=== PATIENT | female | born 1980 | race Caucasian/White ===

== ENCOUNTER → 2017-10-11 | Outpatient (REF) | payer OTHER ==
[2017-10-11 14:43] LABS: ALBUMIN 3.6 GM/DL (3.2-5.2); ALBUMIN/GLOBULIN RATIO 1.09 (1.00-1.93); ALKALINE PHOSPHATASE 76 U/L (45-117); ALT/SGPT 19 U/L (12-78); AST/SGOT 11 U/L (7-37); BILIRUBIN,DIRECT < 0.1 MG/DL (0.0-0.2); BILIRUBIN,TOTAL 0.2 MG/DL (0.2-1.0); TOTAL PROTEIN 6.9 GM/DL (6.4-8.2)
[2017-10-15 10:28] LABS: HEPATITIS C QUANTITATION HCV Not Detected IU/mL (.)
== END ==
LOC: M SFHCPLAZ 13:24
DX: B18.2 Chronic viral hepatitis C (principal)

== ENCOUNTER → 2018-08-30 | Outpatient (CLI) | payer OTHER ==
[~2018-08-30] MED LIST: ALL10TAB28 PO; BACT800T5 PO; CETI10TA PO; DOK100TA PO; EXCETAB80 PO; GABA-843 PO; IMIT100T PO; MAVY1TAB PO; METH10CO PO; METH10TA2 PO; MIRA3350 PO; MIRA33504 PO; NICO21PAT TD; NORC1TAB4 PO; OSEL75CA2 PO; PATIENT COMMENT; SENE8.6T3 PO; TOPA100T12 PO; TOPA1TAB PO; TRAZ1TAB14 PO; TRAZO50TA PO; VENL150C43 PO; VENL75CA2 PO; VENL75CA47 PO; VENTAER INH; VITMTA PO
--- NOTE | 2018-09-14 01:00 | ECWPNPC ---
PATIENT NAME: LOREN WHITE : 1980 GENDER: FEMALE VISIT DATE: 08/30/2018 DISCHARGE DATE: 08/30/18 1201 VISIT LOCKED DATE TIME: PHYSICIAN: JOSE MANZANO MD RESOURCE: JOES MANZANO MD REASON FOR APPOINTMENT 1. CHRONIC LOW BACK PAIN HISTORY OF PRESENT ILLNESS FALL RISK SCREENING: SCREENING : NO FALLS IN THE PAST YEAR. PAIN SCREENING: PATIENT HAS A COMPLAINT OF ACUTE OR CHRONIC PAIN :YES 38 YEAR OLD FEMALE PATIENT WITH A HISTORY OF CHRONIC LOW BACK PAIN. THE PATIENT DESCRIBES THE PAIN ACHING, STABBING, TENDER, SORE, AND CONTINUOUS WITH A PAIN SCORE OF 7-10/10 DEPENDING ON PHYSICAL ACTIVITY. THE PATIENT SAYS THAT SHE HAS HAD THIS PAIN FOR MANY YEARS AND DOES NOT RECALL A SPECIFIC INCIDENT THAT CAUSED HER PAIN TO START. THE PATIENT SAYS HER PAIN STARTS IN HER LOW BACK AREA AND OCCASIONALLY RADIATES DOWN BOTH OF HER LEGS. THE PATIENT HAS TRIED PHYSICAL THERAPY IN THE PAST, BUT SAYS IT DID NOT HELP. PATIENT DENIES UNEXPLAINABLE WEIGHT LOSS, FEVER, CHILLS, NEW CHANGES ON HER URINARY OR BOWEL CONTROL. CURRENT MEDICATIONS TAKING EFFEXOR XR 150 MG CAPSULE EXTENDED RELEASE 24 HOUR 1 CAPSULE WITH FOOD ORALLY ONCE A DAY TAKING EFFEXOR XR 75 MG CAPSULE EXTENDED RELEASE 24 HOUR 1 CAPSULE WITH FOOD ORALLY ONCE A DAY TAKING TRAZODONE HCL 150 MG TABLET 1 TABLET AT BEDTIME NEEDED ORALLY ONCE A DAY TAKING TOPAMAX 50 MG TABLET 1 TABLET ORALLY TWICE A DAY TAKING RISPERIDONE 0.5 MG TABLET 1 TABLET ORALLY BID TAKING METHADONE HCL 10 MG/5ML SOLUTION 155 MG LIQUID ORALLY DAILY TAKING IMITREX 50 MG TABLET 1 TABLET NEEDED ORALLY TWICE A DAY TAKING GABAPENTIN 300 MG CAPSULE 1 CAPSULE ORALLY TID TAKING CETIRIZINE HCL 10 MG TABLET 1 TABLET ORALLY ONCE A DAY TAKING METFORMIN HCL ER 750 MG TABLET EXTENDED RELEASE 24 HOUR 1 TABLET WITH EVENING MEAL ORALLY ONCE A DAY TAKING SUMATRIPTAN SUCCINATE 100 MG TABLET 1 TABLET NEEDED ORALLY TWICE A DAY TAKING VENTOLIN HFA 108 (90 BASE) MCG/ACT AEROSOL SOLUTION 2 PUFFS NEEDED INHALATION EVERY 6 HRS TAKING IBUPROFEN 800 MG TABLET 1 TABLET WITH FOOD OR MILK NEEDED ORALLY THREE TIMES A DAY TAKING EXCEDRIN EXTRA STRENGTH 250-250-65 MG TABLET 2 TABLETS NEEDED ORALLY ONCE A DAY TAKING MULTI COMPLETE - CAPSULE 1 CAP ORALLY DAILY NOT-TAKING ZYRTEC ALLERGY 10 MG TABLET 1 TABLET ORALLY ONCE A DAY NOT-TAKING COLACE 100 MG CAPSULE 1 CAPSULE NEEDED ORALLY ONCE A DAY NOT-TAKING MIRALAX - PACKET 1 PACKET MIXED WITH 8 OUNCES OF FLUID ORALLY ONCE A DAY NOT-TAKING MAVYRET 100-40 MG TABLET 3 TABLETS ORALLY ONCE A DAY MEDICATION LIST REVIEWED AND RECONCILED WITH THE PATIENT PAST MEDICAL HISTORY CHRONIC HEPATITIS C HEPATITIS C VIRAL LOAD 284,000 AST 35 ALT 80 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 MAJOR DEPRESSION SEASONAL ALLERGIES INSOMNIA TATOOS ON RIGHT LEG AND ARM ASTHMA ANXIETY ALLERGIES KEFLEX: ANAPHYLAXIS - ALLERGY SEASONAL: ALLERGY SURGICAL HISTORY CARPAL TUNNEL SURGERY 2018 TUBAL LIGATION 2006 FAMILY HISTORY 1 SON(S) , 2 DAUGHTER(S) . PATIENT WAS ADOPTED, DOES NOT KNOW FAMILY HISTORY.DAUGHTER - AUTISM, BI-POLAR. SOCIAL HISTORY GENERAL: TOBACCO USE ARE YOU A:CURRENT SMOKER ARE YOU INTERESTED IN QUITTING?NOT READY TO QUIT COUNSELED THE PATIENT ON SMOKING EFFECTS, EDUCATION [id number]/08/2019 HOW MANY CIGARETTES A DAY DO YOU SMOKE?6-10 HOW SOON AFTER YOU WAKE UP DO YOU SMOKE YOUR FIRST CIGARETTE?6-30 MIN HOW OFTEN DO YOU SMOKE CIGARETTES?EVERY DAY PATIENT COUNSELED ON THE DANGERS OF TOBACCO USE AND URGED TO QUIT:08/30/2018 SMOKING CESSATION INFORMATION GIVEN01/01/2018 LATEX QUESTIONNAIRE LATEX ALLERGY : HAVE YOU EVER DEVELOPED ANY TYPE OF REACTION AFTER HANDLING LATEX PRODUCTS SUCH RUBBER GLOVES, CONDOMS, DIAPHRAGMS, BALLOONS, SOCKS, OR UNDERWEAR?NO LATEX ALLERGY : HAVE YOU EVER DEVELOPED ANY TYPE OF REACTION DURING OR AFTER DENTAL APPOINTMENT, VAGINAL/RECTAL EXAMINATION, SURGICAL PROCEDURE, OR ANY OTHER EXPOSURE?NO LATEX RISK : HAVE YOU EVER HAD ANY DIFFICULTY BREATHING OR HIVES AFTER EATING OR HANDLING ANY FRUITS, OR VEGETABLES; SUCH KIWI, BANANAS, STONE FRUITS, OR CHESTNUTSNO LATEX RISK : DO YOU HAVE A PREVIOUS PERSONAL HISTORY OF MORE THAN NINE SURGERIES, SPINA BIFIDA, OR REPEATED CATHERTIZATIONS? NO LATEX RISK : ARE YOU FREQUENTLY EXPOSED TO LATEX PRODUCTS IN YOUR OCCUPATION?NO DATE ASKED : 08/30/2018 ALCOHOL SCREENING DID YOU HAVE A DRINK CONTAINING ALCOHOL IN THE PAST YEAR?NO POINTS0 INTERPRETATIONNEGATIVE RECREATIONAL DRUG USE DRUG USE?YES ADDICTION OPIATES IN PAST, HAS BEEN SOBER FOR 16 MONTHS CAFFEINE CAFFEINE USE?YES SEXUAL HX HAD SEX IN THE LAST 12 MONTHS (VAGINAL, ORAL, OR ANAL)?NO HAVE YOU EVER HAD AN STD?NO LMP:07/2017 HIV / HEP-C SCREENING HIV TEST OFFERED TO PATIENT:YES DATE OFFERED:08/06/2017 TEST ACCEPTED:NO REASON:OTHER (DOCUMENT IN NOTE) PER PT SCREENED NEGATIVE HEP-C TEST OFFERED TO PATIENT:YES STATES TEST WAS NOT POSITIVE LATTER-DAY [id number] [employer] LANGUAGE LANGUAGES SPOKEN:BELGI[place] EDUCATION LEVEL OF EDUCATION:FINISHED HIGH SCHOOL LEARNING BARRIERS / SPECIAL NEEDS BARRIERS TO LEARNING?NO HEARING IMPAIRED?NO VISION IMPAIRED?YES :CORRECTIVE LENSES GLASSES COGNITIVELY IMPAIRED?NO READINESS TO LEARN?YES LEARNING PREFERENCES?NO LEARNING CAPABILITIES PRESENT?YES EMOTIONAL BARRIERS?YES COMMENTSDOCUMENTED IN NOTES SECTION> DRUG ADDICTION SPECIAL DEVICES?NO ACOUSTICAL INSTALLER NEEDED?NO DOMESTIC VIOLENCE DO YOU FEEL SAFE IN YOUR ENVIRONMENT?YES OCCUPATION: UNEMPLOYED HAS BEEN (INCARCERATED)6MONTHS. DIET: REGULAR. EXERCISE: NONE. MARITAL STATUS: BUT, AND SINGLE. OTHERS AT HOME: NONE. PAIN CLINIC PFS, CLERGY, PUBLIC HEALTH REFERRALS HAS THE PATIENT BEEN EDUCATED REGARDING HIS/HER PLAN OF CARE?YES HAS THE PATIENT BEEN EDUCATED REGARDING PAIN, THE RISK FOR PAIN, THE IMPORTANCE OF EFFECTIVE PAIN MANAGEMENT, AND THE PAIN ASSESSMENT PROCESS?YES HOUSING: RENTS APARTMENT. ADVANCE DIRECTIVE ADVANCE DIRECTIVE DISCUSSED WITH PATIENT:YES DECLINED HCP INFORMATION. REVIEWED WITH PATIENT 08/30/18 1107 JS. HOSPITALIZATION/MAJOR DIAGNOSTIC PROCEDURE SURGERY RELATED CHILD REVIEW OF SYSTEMS REVIEWED BY: PROVIDER: JOSE MANZANO MD . CONSTITUTIONAL: ANY CHANGE IN YOUR MEDICAL CONDITION? NO . CHILLS NO . FEVER NO . INFECTION: DO YOU HAVE NEW INFECTIONS? NO . DO YOU HAVE HISTORY OF MRSA? NO . MUSCULOSKELETAL: ANY NEW PATTERNS OF PAIN OR NUMBNESS? YES, STATES PAIN MOSTLY IN HER LOWER BACK, STATES IT COMES AND GOES . SYTEMIC LUPUS NO . GASTROENTEROLOGY: ANY NEW CHANGE IN BOWEL CONTROL? YES, STATES CONSTIPATION DUE TO METHADONE . BARRETTS ESOPHAGUS NO . CIRRHOSIS NO . HEPATITIS NO . LIVER FAILURE NO . ACID REFLUX NO . UNEXPLAINED WEIGHT LOSS NO . GENITOURINARY: ANY NEW CHANGE IN BLADDER CONTROL? NO . IS THERE A CHANCE YOU COULD BE ? NO . HEMATOLOGY/LYMPH: DO YOU TAKE ANY BLOOD THINNERS? (FOR EXAMPLE- COUMADIN, PLAVIX, AGGRENOX, PLATEL, PRADAXA, OR XARELTO) NO . WHEN WAS YOUR LAST DOSE? DATE: TIME: . LOW PLATELET COUNT NO . SICKLE CELL DISEASE NO . VON WILLIEBRANDS NO . FACTOR V LEIDEN NO . THALLASEMIA NO . ANEMIA NO . EASY BRUISING NO . NEUROLOGY: HAVE YOU FALLEN IN THE PAST 12 MONTHS? NO . ANY NEW EXTREMITY NUMBNESS OR WEAKNESS? YES, STATES PAIN SHOOTS DOWN HER LEGS FROM HER BACK, STATES SOMETIMES IT MAKES HER LEGS WEAK . HEAD INJURY NO . DEMENTIA NO . CEREBRAL PALSY NO . MULTIPLE SCLEROSIS NO . DIZZINESS NO . HEADACHE NO . STROKES NO . VERTIGO NO . CARDIOLOGY: DO YOU HAVE A PACEMAKER OR DEFIBRILLATOR? NO . ANGINA NO . HEART ATTACK NO . HEART SURGERY NO . CONGESTIVE HEART FAILURE/FLUID OVERLOAD NO . CHEST PAIN NO . HIGH BLOOD PRESSURE NO . IRREGULAR HEART BEAT NO . RESPIRATORY: HAVE YOU BEEN SICK IN THE PAST WEEK? NO . FEVER NO . FLU LIKE SYMPTOMS? NO . CPAP NO . BYPAP NO . ASTHMA YES . EMPHYSEMA NO . CHRONIC LUNG DISEASES NO . SHORTNESS OF BREATH ON EXERTION YES . COUGH NO . SNORING NO . INTEGUMENTARY: DO YOU HAVE ANY RASHES OR OPEN SORES? NO . ALLERGIC/IMMUNO: ARE YOU ALLERGIC TO IV DYE? NO . ANY NEW ALLERGIES? NO . PSYCHIATRIC: DO YOU HAVE THOUGHTS OF HURTING YOURSELF OR SOMEONE ELSE? NO . ARE YOU ABUSED, NEGLECTED, OR IN AN UNSAFE ENVIRONMENT? NO . ENDOCRINOLOGY: ARE YOU DIABETIC? NO . THYROID DISORDER NO . OTHER: DO YOU NEED ANY PRESCRIPTIONS? NO . IF YES, PLEASE LIST: ____ . ANY NEW PROBLEMS WITH YOUR MEDICATIONS? NO . WHEN DID YOU LAST EAT? ____ . WHEN DID YOU LAST DRINK? ____ . WHAT DID YOU LAST DRINK? ____ . NAME OF PERSON DRIVING YOU HOME? ____ . DO YOU HAVE ANY OTHER QUESTIONS OR CONCERNS NO . VITAL SIGNS WT 196.4 LBS, HT 64 IN, BMI 33.71 INDEX, BP 112/79 MM HG, HR 88 /MIN, RR 18 /MIN, TEMP 97.7 F, OXYGEN SAT % 92%, SAFE IN ENV? (Y/N) YES, NA INITIALS AW 1051, REVIEWED BY: TAMEKA. EXAMINATION GENERAL EXAMINATION: PATIENT IS ALERT O X 3 AND COOPERATIVE. LUNGS CLEAR, TO AUSCULTATION. HEART: NO MURMURS OR GALLOPS; FACIAL CRANIAL NERVES ARE GROSSLY NORMAL. GOOD SYMMETRY OF FACIAL MUSCLE MOVEMENT. NORMAL VISUAL VANG. TENDERNESS IN THE LOW BACK AREA. PRESENCE OF TRIGGER POINTS AND BANDS OF TISSUE WITH RESTRICTION OF MOVEMENT OF THE BACK. PAIN INCREASES OVER THE LUMBAR FACET JOINTS WITH EXTENSION AND LATERAL ROTATION OF THE BACK. MRI OF THE LUMBAR SPINE DONE ON 08/02/2017 SHOWS FACET ARTHROPATHY CHANGES AND BULGING DISCS AT MULTIPLE LEVELS. 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 WHITE'S PAIN MANAGEMENT CASE. DUE TO THE TRIGGER POINTS, BANDS OF TISSUE, AND RESTRICTION OF MOVEMENT, I WOULD LIKE TO MOVE FORWARD WITH A TRIGGER POINT INJECTION AT THIS TIME. WE DISCUSSED THE BENEFITS, RISKS, AND ALTERNATIVES OF THE INJECTION AND THE PATIENT WOULD LIKE TO PROCEED. DEPENDING ON THE RESULTS OF THE INJECTION, THE PATIENT WILL CONSIDER A LUMBER EPIDURAL OR A LUMBAR FACET BLOCK IN THE FUTURE. INSTRUCTIONS WERE GIVEN, QUESTIONS WERE ANSWERED, PATIENT REPORTS UNDERSTANDING AND AGREES WITH THE PLAN. I, CHER BROWN, DOCUMENTED THE ABOVE INFORMATION ACTING A SCRIBE FOR DR. MANZANO. I HAVE REVIEWED THE ABOVE DOCUMENT, WRITTEN BY CHER MINER AND I VERIFY THAT IT IS ACCURATE. DEAR DR. CLARK:THANK YOU FOR YOUR KIND REFERRAL OF MRS. WHITE. IF YOU WANT TO DISCUSS HER CASE WITH ME PLEASE CALL ME AT THE PAIN CENTER AT [phone]. SINCERELY,JOSE MANZANO, [facility] . OTHERS NOTES: TRIGGER POINT INJECTION MATERIAL WAS PRINTED,TRIGGER POINT INJECTION: YOUR EXPERIENCE MATERIAL WAS PRINTED. PREVENTIVE MEDICINE PAIN CLINIC TEACHING: PROCEDURE TEACHING PRINTED AND REVIEWED INFORMATION ON TRIGGER POINT INJECTIONS WITH PATIENT. ALSO REVIEWED PRE-PROCEDURE INSTRUCTIONS. PATIENT VERBALIZED AN UNDERSTANDING. HILARY DUMONT 08/30/2018 12:13:28 PM > . PROCEDURE CODES FA211 ESTABILISHED PATIENT [facility] FACILITY CHARGE G8427 CURRENT MEDS W/DOSAGES DOCUMENTED G8730 PAIN ASSESS POS TOOL F/U PLAN DOC DISPOSITION & COMMUNICATION FOLLOW UP 3 WEEKS ELECTRONICALLY SIGNED BY JOSE MANZANO MD, MD ON 09/13/2018 AT 10:56 AM EDT DISCLAIMER : THIS IS A VISIT SUMMARY EXTRACTED FROM THE [employer] CHART. IT IS NOT A COPY OF THE [employer] PROGRESS NOTE. PARKER
== END ==
LOC: MERGE 10:30 → M PAIN 10:30
PROVIDERS: ATTEND Anesthesiology
DX: M79.18 Myalgia, other site (principal); M47.816 Spondylosis without myelopathy or radiculopathy, lumbar region; M51.16 Intervertebral disc disorders with radiculopathy, lumbar region; F32.9 Major depressive disorder, single episode, unspecified; J45.909 Unspecified asthma, uncomplicated; F41.9 Anxiety disorder, unspecified; F17.210 Nicotine dependence, cigarettes, uncomplicated; Z79.84 Long term (current) use of oral hypoglycemic drugs; Z79.899 Other long term (current) drug therapy; Z88.8 Allergy status to other drugs, medicaments and biological substances; Z86.59 Personal history of other mental and behavioral disorders; Z86.19 Personal history of other infectious and parasitic diseases

== ENCOUNTER → 2018-09-25 | Outpatient (REF) | payer OTHER ==
[~2018-09-25] MED LIST changes: -NORC1TAB4 PO; +NORC1TAB7 PO
[2018-09-25 10:32] LABS: CHOLESTEROL RISK RATIO 5.162 (<5)
[2018-09-25 11:30] LABS: HEMOGLOBIN A1c 5.8 %
== END ==
LOC: M LABDRWAD 10:04
PROVIDERS: ATTEND Nurse Practitioner Psychiatric/Mental Health
DX: Z51.81 Encounter for therapeutic drug level monitoring (principal); Z79.899 Other long term (current) drug therapy; F20.9 Schizophrenia, unspecified

== ENCOUNTER → 2018-11-05 | Outpatient (CLI) | payer OTHER ==
[~2018-11-05] MED LIST changes: +BUPIVACAINE HCL 0.25% 10 ML VIAL As Ordered ONE; +BUPIVACAINE HCL 0.25% 30 ML VIAL As Ordered ONE; +TRIAMCINOLONE ACETONIDE SUSP 40 MG/ML VIAL (J3301) As Ordered ONE; +diazePAM 5 MG TAB As Ordered ONE; +oxyCODONE 5MG TAB As Ordered ONE
--- NOTE | 2018-11-16 23:12 | ECWPNPC ---
PATIENT NAME: LOREN WHITE : 1980 GENDER: FEMALE VISIT DATE: 11/05/2018 DISCHARGE DATE: 11/05/181425 VISIT LOCKED DATE TIME: PHYSICIAN: JOSE MANZANO MD RESOURCE: JOSE MANZANO MD REASON FOR APPOINTMENT 1. TPI HISTORY OF PRESENT ILLNESS HISTORY OF PRESENT ILLNESS: PAIN THE PATIENT DESCRIBES THE PAIN... FALL RISK SCREENING: SCREENING :NO FALLS REPORTED IN THE LAST YEAR CURRENT MEDICATIONS TAKING EFFEXOR XR 150 MG CAPSULE EXTENDED RELEASE 24 HOUR 1 CAPSULE WITH FOOD ORALLY ONCE A DAY, NOTES: 11/05/18 AM TAKING EFFEXOR XR 75 MG CAPSULE EXTENDED RELEASE 24 HOUR 1 CAPSULE WITH FOOD ORALLY ONCE A DAY, NOTES: 11/05/18 AM TAKING TRAZODONE HCL 150 MG TABLET 1 TABLET AT BEDTIME NEEDED ORALLY ONCE A DAY, NOTES: 11/04/18 TAKING TOPAMAX 50 MG TABLET 1 TABLET ORALLY TWICE A DAY, NOTES: 11/05/18 AM TAKING RISPERIDONE 0.5 MG TABLET 1 TABLET ORALLY BID, NOTES: 11/05/18 AM TAKING METHADONE HCL 10 MG/5ML SOLUTION 155 MG LIQUID ORALLY DAILY, NOTES: 11/05/18 AM TAKING IMITREX 50 MG TABLET 1 TABLET NEEDED ORALLY TWICE A DAY, NOTES: NONE LATELY TAKING GABAPENTIN 300 MG CAPSULE 1 CAPSULE ORALLY TID, NOTES: 11/05/18 AM TAKING CETIRIZINE HCL 10 MG TABLET 1 TABLET ORALLY ONCE A DAY, NOTES: 11/05/18 AM TAKING METFORMIN HCL ER 750 MG TABLET EXTENDED RELEASE 24 HOUR 1 TABLET WITH EVENING MEAL ORALLY ONCE A DAY, NOTES: 11/05/18 AM TAKING SUMATRIPTAN SUCCINATE 100 MG TABLET 1 TABLET NEEDED ORALLY TWICE A DAY, NOTES: 11/05/18 AM TAKING VENTOLIN HFA 108 (90 BASE) MCG/ACT AEROSOL SOLUTION 2 PUFFS NEEDED INHALATION EVERY 6 HRS, NOTES: NONE LATELY TAKING IBUPROFEN 800 MG TABLET 1 TABLET WITH FOOD OR MILK NEEDED ORALLY THREE TIMES A DAY, NOTES: NONE LATELY TAKING EXCEDRIN EXTRA STRENGTH 250-250-65 MG TABLET 2 TABLETS NEEDED ORALLY ONCE A DAY, NOTES: NONE LATELY TAKING MULTI COMPLETE - CAPSULE 1 CAP ORALLY DAILY, NOTES: 11/05/18 AM NOT-TAKING ZYRTEC ALLERGY 10 MG TABLET 1 TABLET ORALLY ONCE A DAY NOT-TAKING COLACE 100 MG CAPSULE 1 CAPSULE NEEDED ORALLY ONCE A DAY NOT-TAKING MIRALAX - PACKET 1 PACKET MIXED WITH 8 OUNCES OF FLUID ORALLY ONCE A DAY NOT-TAKING MAVYRET 100-40 MG TABLET 3 TABLETS ORALLY ONCE A DAY MEDICATION LIST REVIEWED AND RECONCILED WITH THE PATIENT PAST MEDICAL HISTORY CHRONIC HEPATITIS C HEPATITIS C VIRAL LOAD 284,000 AST 35 ALT 80 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 MAJOR DEPRESSION SEASONAL ALLERGIES INSOMNIA TATOOS ON RIGHT LEG AND ARM ASTHMA ANXIETY ALLERGIES KEFLEX: ANAPHYLAXIS - ALLERGY SEASONAL: ALLERGY SURGICAL HISTORY CARPAL TUNNEL SURGERY 2018 TUBAL LIGATION 2007 FAMILY HISTORY 1 SON(S) , 2 DAUGHTER(S) . PATIENT WAS ADOPTED, DOES NOT KNOW FAMILY HISTORY.DAUGHTER - AUTISM, BI-POLAR. SOCIAL HISTORY GENERAL: TOBACCO USE ARE YOU A:CURRENT SMOKER ARE YOU INTERESTED IN QUITTING?NOT READY TO QUIT COUNSELED THE PATIENT ON SMOKING EFFECTS, EDUCATION [id number]/14/2019 HOW MANY CIGARETTES A DAY DO YOU SMOKE?6-10 HOW SOON AFTER YOU WAKE UP DO YOU SMOKE YOUR FIRST CIGARETTE?6-30 MIN HOW OFTEN DO YOU SMOKE CIGARETTES?EVERY DAY PATIENT COUNSELED ON THE DANGERS OF TOBACCO USE AND URGED TO QUIT:08/30/2018 SMOKING CESSATION INFORMATION GIVEN01/01/2018 HIV / HEP-C SCREENING HIV TEST OFFERED TO PATIENT:YES DATE OFFERED:08/06/2017 TEST ACCEPTED:NO REASON:OTHER (DOCUMENT IN NOTE) PER PT SCREENED NEGATIVE HEP-C TEST OFFERED TO PATIENT:YES STATES TEST WAS NOT POSITIVE OTHERS AT HOME: NONE. HOUSING: RENTS APARTMENT. EDUCATION LEVEL OF EDUCATION:FINISHED HIGH SCHOOL DIET: REGULAR. LANGUAGE LANGUAGES SPOKEN:MARSHALLESE DOMESTIC VIOLENCE DO YOU FEEL SAFE IN YOUR ENVIRONMENT?YES RECREATIONAL DRUG USE DRUG USE?YES ADDICTION OPIATES IN PAST, HAS BEEN SOBER FOR 16 MONTHS EXERCISE: NONE. 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 NEEDED?NO PAIN CLINIC PFS, CLERGY, PUBLIC HEALTH REFERRALS HAS THE PATIENT BEEN EDUCATED REGARDING HIS/HER PLAN OF CARE?YES HAS THE PATIENT BEEN EDUCATED REGARDING PAIN, THE RISK FOR PAIN, THE IMPORTANCE OF EFFECTIVE PAIN MANAGEMENT, AND THE PAIN ASSESSMENT PROCESS?YES LATEX QUESTIONNAIRE LATEX ALLERGY : HAVE YOU EVER DEVELOPED ANY TYPE OF REACTION AFTER HANDLING LATEX PRODUCTS SUCH RUBBER GLOVES, CONDOMS, DIAPHRAGMS, BALLOONS, SOCKS, OR UNDERWEAR?NO LATEX ALLERGY : HAVE YOU EVER DEVELOPED ANY TYPE OF REACTION DURING OR AFTER DENTAL APPOINTMENT, VAGINAL/RECTAL EXAMINATION, SURGICAL PROCEDURE, OR ANY OTHER EXPOSURE?NO LATEX RISK : HAVE YOU EVER HAD ANY DIFFICULTY BREATHING OR HIVES AFTER EATING OR HANDLING ANY FRUITS, OR VEGETABLES; SUCH KIWI, BANANAS, STONE FRUITS, OR CHESTNUTSNO LATEX RISK : DO YOU HAVE A PREVIOUS PERSONAL HISTORY OF MORE THAN NINE SURGERIES, SPINA BIFIDA, OR REPEATED CATHERTIZATIONS? NO LATEX RISK : ARE YOU FREQUENTLY EXPOSED TO LATEX PRODUCTS IN YOUR OCCUPATION?NO DATE ASKED : 08/30/2018 CAFFEINE CAFFEINE USE?YES ADVANCE DIRECTIVE ADVANCE DIRECTIVE DISCUSSED WITH PATIENT:YES DECLINED HCP INFORMATION. HINDU [id number] EPISCOPAL MARITAL STATUS: BUT, AND SINGLE. ALCOHOL SCREENING DID YOU HAVE A DRINK CONTAINING ALCOHOL IN THE PAST YEAR?NO POINTS0 INTERPRETATIONNEGATIVE OCCUPATION: UNEMPLOYED HAS BEEN (INCARCERATED)6MONTHS. SEXUAL HX HAD SEX IN THE LAST 12 MONTHS (VAGINAL, ORAL, OR ANAL)?NO HAVE YOU EVER HAD AN STD?NO LMP:07/2017 REVIEWED WITH PATIENT 08/30/18 1107 JS. HOSPITALIZATION/MAJOR DIAGNOSTIC PROCEDURE SURGERY RELATED CHILD REVIEW OF SYSTEMS REVIEWED BY: PROVIDER: . CONSTITUTIONAL: ANY CHANGE IN YOUR MEDICAL CONDITION? NO . CHILLS NO . FEVER NO . INFECTION: DO YOU HAVE NEW INFECTIONS? NO . DO YOU HAVE HISTORY OF MRSA? NO . MUSCULOSKELETAL: ANY NEW PATTERNS OF PAIN OR NUMBNESS? NO . GASTROENTEROLOGY: ANY NEW CHANGE IN BOWEL CONTROL? NO . GENITOURINARY: ANY NEW CHANGE IN BLADDER CONTROL? NO . IS THERE A CHANCE YOU COULD BE ? NO . HEMATOLOGY/LYMPH: DO YOU TAKE ANY BLOOD THINNERS? (FOR EXAMPLE- COUMADIN, PLAVIX, AGGRENOX, PLATEL, PRADAXA, OR XARELTO) NO . WHEN WAS YOUR LAST DOSE? DATE: TIME: . NEUROLOGY: HAVE YOU FALLEN IN THE PAST 12 MONTHS? NO . ANY NEW EXTREMITY NUMBNESS OR WEAKNESS? NO . CARDIOLOGY: DO YOU HAVE A PACEMAKER OR DEFIBRILLATOR? NO . RESPIRATORY: HAVE YOU BEEN SICK IN THE PAST WEEK? NO . FEVER NO . FLU LIKE SYMPTOMS? NO . COUGH NO . INTEGUMENTARY: DO YOU HAVE ANY RASHES OR OPEN SORES? NO . ALLERGIC/IMMUNO: ARE YOU ALLERGIC TO IV DYE? NO . ANY NEW ALLERGIES? NO . PSYCHIATRIC: DO YOU HAVE THOUGHTS OF HURTING YOURSELF OR SOMEONE ELSE? NO . ARE YOU ABUSED, NEGLECTED, OR IN AN UNSAFE ENVIRONMENT? NO . ENDOCRINOLOGY: ARE YOU DIABETIC? NO . OTHER: DO YOU NEED ANY PRESCRIPTIONS? NO . IF YES, PLEASE LIST: ____ . ANY NEW PROBLEMS WITH YOUR MEDICATIONS? NO . WHEN DID YOU LAST EAT? ____ . WHEN DID YOU LAST DRINK? ____ . WHAT DID YOU LAST DRINK? ____ . NAME OF PERSON DRIVING YOU HOME? ____ . DO YOU HAVE ANY OTHER QUESTIONS OR CONCERNS NO . VITAL SIGNS WT 190 LBS, HT 64 IN, BMI 32.61 INDEX, BP 103/69 MM HG, HR 105 /MIN, RR 16 /MIN, TEMP 96.5 F, OXYGEN SAT % 95, REVIEWED BY: MP [id number]. ASSESSMENTS MYALGIA, OTHER SITE - M79.18 (PRIMARY) PROCEDURES PN TRIGGER POINT INJECTION WITH STEROIDS PRE PROCEDURE DIAGNOSIS 1. MYALGIA 2. PAIN AT BILATERAL LOW BACK AREA POST PROCEDURE DIAGNOSIS 1. MYALGIA 2. PAIN AT BILATERAL LOW BACK AREA PROCEDURE TRIGGER POINT INJECTION AT BILATERAL LOW BACK AREA SURGEON DR. JOSE MANZANO CREPE MACHINE OPERATOR NONE ANESTHESIA LOCAL PRE PROCEDURE NOTE THE PATIENT HAS A HISTORY OF CHRONIC PAIN AT THE RIGHT AND LEFT LOW BACK AREA. I EVALUATE THE PATIENT AND REVIEWED THE CHART. THERE IS EVIDENCE OF BANDS OF TISSUE WITH RESTRICTION OF MOVEMENT AND PRESENCE OF TRIGGER POINT AT THE AFFECTED AREA. I WENT OVER THE RISKS, ALTERNATIVES, AND BENEFITS ASSOCIATED WITH THIS PROCEDURE. THE PATIENT WOULD LIKE TO PROCEED AND GIVE CONSENT TO PERFORMED THE PROCEDURE. THE PATIENT DENIES UNEXPLAINABLE WEIGHT LOSS, FEVER, CHILLS, OR NEW CHANGES IN URINARY OR BOWEL CONTROL DESCRIPTION OF PROCEDURE THE PATIENT WAS BROUGHT TO THE PROCEDURE ROOM AND PLACED IN THE SITTING POSITION. THE AREA WAS CLEANED WITH ALCOHOL. THE PROCEDURE WAS DONE USING ASEPTIC STERILE TECHNIQUE. I CHECKED LATERALITY AND THE LEVEL WHERE THE PROCEDURE WAS GOING TO BE PERFORMED WITH THE PATIENT AND THE SUPPORTING STAFF AT THE MOMENT OF THE TIME OUT IN THE PROCEDURE ROOM. USING A 25-GAUGE NEEDLE, TRIGGER POINTS WERE INJECTED AT THE RIGHT AND LEFT LOW BACK AREA WITH A TOTAL OF 40 ML OF BUPIVACAINE 0.25% AND KENALOG 40 MG. THERE WAS NO EVIDENCE OF BLOOD, PARESTHESIA OR CEREBROSPINAL FLUID DURING THE PROCEDURE. THE PATIENT WAS SENT TO THE RECOVERY ROOM. THE PATIENT WAS MOVING THE EXTREMITIES AND DOING WELL. THERE WAS NO COMPLICATION DURING THE PROCEDURE POST PROCEDURE NOTE THE PATIENT WILL BE SEEN IN A FOLLOW UP IN THE NEXT FEW WEEKS. INSTRUCTIONS WERE GIVEN, QUESTIONS WERE ANSWERED, AND THE PATIENT EXPRESSED UNDERSTANDING AND AGREES WITH THE PLAN. I, CHER BROWN, DOCUMENTED THE ABOVE INFORMATION ACTING A SCRIBE FOR DR. MANZANO. I HAVE REVIEWED THE ABOVE DOCUMENT, WRITTEN BY CHER MCCALLUMIBIgor AND I VERIFY THAT IT IS ACCURATE. PROCEDURE CODES 97498 INJ TRIGGER POINT / MUSC DISPOSITION & COMMUNICATION FOLLOW UP 3 WEEKS ELECTRONICALLY SIGNED BY JOSE MANZANO MD, MD ON 11/16/2018 AT 05:26 PM EDT DISCLAIMER : THIS IS A VISIT SUMMARY EXTRACTED FROM THE [employer] CHART. IT IS NOT A COPY OF THE E[employer]ICAL[employer]KS PROGRESS NOTE. PARKER
== END ==
LOC: M PAIN 12:00
PROVIDERS: ATTEND Anesthesiology
DX: M79.18 Myalgia, other site (principal); M54.5 Low back pain; J45.909 Unspecified asthma, uncomplicated; F17.210 Nicotine dependence, cigarettes, uncomplicated; Z79.84 Long term (current) use of oral hypoglycemic drugs; Z79.899 Other long term (current) drug therapy; Z88.8 Allergy status to other drugs, medicaments and biological substances; Z86.19 Personal history of other infectious and parasitic diseases; Z86.59 Personal history of other mental and behavioral disorders
CPT/HCPCS: 20552; J3301

== ENCOUNTER → 2018-11-05 | Outpatient (CLI) | payer OTHER ==
[~2018-11-05] MED LIST changes: -BUPIVACAINE HCL 0.25% 10 ML VIAL As Ordered ONE; -BUPIVACAINE HCL 0.25% 30 ML VIAL As Ordered ONE; -TRIAMCINOLONE ACETONIDE SUSP 40 MG/ML VIAL (J3301) As Ordered ONE; -diazePAM 5 MG TAB As Ordered ONE; -oxyCODONE 5MG TAB As Ordered ONE
== END ==
LOC: M PAIN 08:30
PROVIDERS: ATTEND Anesthesiology
DX: M47.816 Spondylosis without myelopathy or radiculopathy, lumbar region (principal); M51.16 Intervertebral disc disorders with radiculopathy, lumbar region; Z53.29 Procedure and treatment not carried out because of patient's decision for other reasons

== ENCOUNTER → 2018-11-19 | Outpatient (CLI) | payer OTHER ==
[~2018-11-19] MED LIST changes: +TRAZ1TAB10 PO; -TRAZO50TA PO
--- NOTE | 2018-11-30 23:27 | ECWPNPC ---
PATIENT NAME: LOREN WHITE : 1980 GENDER: FEMALE VISIT DATE: 11/19/2018 DISCHARGE DATE: 11/19/18 1256 VISIT LOCKED DATE TIME: PHYSICIAN: JOSE MANZANO MD RESOURCE: JOSE MANZANO MD REASON FOR APPOINTMENT 1. POST TPI HISTORY OF PRESENT ILLNESS HISTORY OF PRESENT ILLNESS: PAIN THE PATIENT DESCRIBES THE PAIN... 38 YEAR OLD FEMALE PATIENT WITH A HISTORY OF CHRONIC LOW BACK PAIN. THE PATIENT DESCRIBES THE PAIN ACHING, BURNING, AND INTERMITTENT WITH A PAIN SCORE OF 0-5/10 DEPENDING ON PHYSICAL ACTIVITY. THE PATIENT RECEIVED A TRIGGER POINT INJECTION ON 11/05/2018 AND REPORTS HAVING MORE THAN 50% PAIN RELIEF. THE PATIENT SAYS THAT SHE IS DOING VERY WELL AFTER THE INJECTION. PATIENT DENIES UNEXPLAINABLE WEIGHT LOSS, FEVER, CHILLS, NEW CHANGES ON HER URINARY OR BOWEL CONTROL. FALL RISK SCREENING: SCREENING :NO FALLS REPORTED IN THE LAST YEAR CURRENT MEDICATIONS TAKING EFFEXOR XR 150 MG CAPSULE EXTENDED RELEASE 24 HOUR 1 CAPSULE WITH FOOD ORALLY ONCE A DAY TAKING EFFEXOR XR 75 MG CAPSULE EXTENDED RELEASE 24 HOUR 1 CAPSULE WITH FOOD ORALLY ONCE A DAY TAKING TRAZODONE HCL 150 MG TABLET 1 TABLET AT BEDTIME NEEDED ORALLY ONCE A DAY TAKING TOPAMAX 50 MG TABLET 1 TABLET ORALLY TWICE A DAY TAKING RISPERIDONE 0.5 MG TABLET 1 TABLET ORALLY BID TAKING METHADONE HCL 10 MG/5ML SOLUTION 155 MG LIQUID ORALLY DAILY TAKING IMITREX 50 MG TABLET 1 TABLET NEEDED ORALLY TWICE A DAY TAKING GABAPENTIN 300 MG CAPSULE 1 CAPSULE ORALLY TID TAKING CETIRIZINE HCL 10 MG TABLET 1 TABLET ORALLY ONCE A DAY TAKING METFORMIN HCL ER 750 MG TABLET EXTENDED RELEASE 24 HOUR 1 TABLET WITH EVENING MEAL ORALLY ONCE A DAY TAKING SUMATRIPTAN SUCCINATE 100 MG TABLET 1 TABLET NEEDED ORALLY TWICE A DAY TAKING VENTOLIN HFA 108 (90 BASE) MCG/ACT AEROSOL SOLUTION 2 PUFFS NEEDED INHALATION EVERY 6 HRS TAKING IBUPROFEN 800 MG TABLET 1 TABLET WITH FOOD OR MILK NEEDED ORALLY THREE TIMES A DAY TAKING EXCEDRIN EXTRA STRENGTH 250-250-65 MG TABLET 2 TABLETS NEEDED ORALLY ONCE A DAY TAKING MULTI COMPLETE - CAPSULE 1 CAP ORALLY DAILY NOT-TAKING COLACE 100 MG CAPSULE 1 CAPSULE NEEDED ORALLY ONCE A DAY NOT-TAKING MIRALAX - PACKET 1 PACKET MIXED WITH 8 OUNCES OF FLUID ORALLY ONCE A DAY NOT-TAKING MAVYRET 100-40 MG TABLET 3 TABLETS ORALLY ONCE A DAY DISCONTINUED ZYRTEC ALLERGY 10 MG TABLET 1 TABLET ORALLY ONCE A DAY, NOTES: DUPLICATE MEDICATION LIST REVIEWED AND RECONCILED WITH THE PATIENT PAST MEDICAL HISTORY CHRONIC HEPATITIS C HEPATITIS C VIRAL LOAD 284,000 AST 35 ALT 80 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 MAJOR DEPRESSION SEASONAL ALLERGIES INSOMNIA TATOOS ON RIGHT LEG AND ARM ASTHMA ANXIETY SPONDYLOSIS LUMBAR REGION WITH RADICULOPATHY MYALGIA INTERVERTEBRAL DISC DISORDER WITH RADICULOPATHY OF LUMBAR REGION ALLERGIES KEFLEX: ANAPHYLAXIS - ALLERGY SEASONAL: ALLERGY SURGICAL HISTORY CARPAL TUNNEL SURGERY-LEFT 2018 TUBAL LIGATION 2006 FAMILY HISTORY SIBLINGS: ALIVE, BROTHER-BIPOLAR, SCHIZOPHRENIA 1 SON(S) , 2 DAUGHTER(S) . PATIENT WAS ADOPTED, DOES NOT KNOW FAMILY HISTORY.DAUGHTER - AUTISM, BI-POLAR. SOCIAL HISTORY GENERAL: TOBACCO USE ARE YOU A:CURRENT SMOKER ARE YOU INTERESTED IN QUITTING?NOT READY TO QUIT COUNSELED THE PATIENT ON SMOKING EFFECTS, EDUCATION [id number]/28/2019 HOW MANY CIGARETTES A DAY DO YOU SMOKE?6-10 HOW SOON AFTER YOU WAKE UP DO YOU SMOKE YOUR FIRST CIGARETTE?6-30 MIN HOW OFTEN DO YOU SMOKE CIGARETTES?EVERY DAY PATIENT COUNSELED ON THE DANGERS OF TOBACCO USE AND URGED TO QUIT:11/19/2018 SMOKING CESSATION INFORMATION GIVEN01/01/2018 HIV / HEP-C SCREENING HIV TEST OFFERED TO PATIENT:YES DATE OFFERED:08/06/2017 TEST ACCEPTED:NO REASON:OTHER (DOCUMENT IN NOTE) PER PT SCREENED NEGATIVE HEP-C TEST OFFERED TO PATIENT:YES STATES TEST WAS NOT POSITIVE OTHERS AT HOME: NONE. HOUSING: RENTS APARTMENT. EDUCATION LEVEL OF EDUCATION:FINISHED HIGH SCHOOL DIET: REGULAR. LANGUAGE LANGUAGES SPOKEN:SYRIAC DOMESTIC VIOLENCE DO YOU FEEL SAFE IN YOUR ENVIRONMENT?YES RECREATIONAL DRUG USE DRUG USE?YES ADDICTION OPIATES IN PAST, HAS BEEN SOBER FOR 16 MONTHS EXERCISE: NONE. LEARNING BARRIERS / SPECIAL NEEDS BARRIERS TO LEARNING?NO HEARING IMPAIRED?NO VISION IMPAIRED?YES :CORRECTIVE LENSES GLASSES COGNITIVELY IMPAIRED?NO READINESS TO LEARN?YES LEARNING PREFERENCES?NO LEARNING CAPABILITIES PRESENT?YES EMOTIONAL BARRIERS?YES COMMENTSDOCUMENTED IN NOTES SECTION> DRUG ADDICTION SPECIAL DEVICES?NO STITCH RUBBER NEEDED?NO PAIN CLINIC PFS, CLERGY, PUBLIC HEALTH REFERRALS HAS THE PATIENT BEEN EDUCATED REGARDING HIS/HER PLAN OF CARE?YES HAS THE PATIENT BEEN EDUCATED REGARDING PAIN, THE RISK FOR PAIN, THE IMPORTANCE OF EFFECTIVE PAIN MANAGEMENT, AND THE PAIN ASSESSMENT PROCESS?YES LATEX QUESTIONNAIRE LATEX ALLERGY : HAVE YOU EVER DEVELOPED ANY TYPE OF REACTION AFTER HANDLING LATEX PRODUCTS SUCH RUBBER GLOVES, CONDOMS, DIAPHRAGMS, BALLOONS, SOCKS, OR UNDERWEAR?NO LATEX ALLERGY : HAVE YOU EVER DEVELOPED ANY TYPE OF REACTION DURING OR AFTER DENTAL APPOINTMENT, VAGINAL/RECTAL EXAMINATION, SURGICAL PROCEDURE, OR ANY OTHER EXPOSURE?NO LATEX RISK : HAVE YOU EVER HAD ANY DIFFICULTY BREATHING OR HIVES AFTER EATING OR HANDLING ANY FRUITS, OR VEGETABLES; SUCH KIWI, BANANAS, STONE FRUITS, OR CHESTNUTSNO LATEX RISK : DO YOU HAVE A PREVIOUS PERSONAL HISTORY OF MORE THAN NINE SURGERIES, SPINA BIFIDA, OR REPEATED CATHERTIZATIONS? NO LATEX RISK : ARE YOU FREQUENTLY EXPOSED TO LATEX PRODUCTS IN YOUR OCCUPATION?NO DATE ASKED : 11/19/2018 CAFFEINE CAFFEINE USE?YES ADVANCE DIRECTIVE ADVANCE DIRECTIVE DISCUSSED WITH PATIENT:YES 11/19/18 PT DOES NOT HAVE ANY ADVANCED DIRECTIVES AND SHE DECLINES INFORMATION ON HCP AT THIS TIME. AD SCIENTOLOGY [id number] BAPTISM MARITAL STATUS: BUT, AND SINGLE. ALCOHOL SCREENING DID YOU HAVE A DRINK CONTAINING ALCOHOL IN THE PAST YEAR?NO POINTS0 INTERPRETATIONNEGATIVE OCCUPATION: UNEMPLOYED HAS BEEN (INCARCERATED)6MONTHS. SEXUAL HX HAD SEX IN THE LAST 12 MONTHS (VAGINAL, ORAL, OR ANAL)?NO HAVE YOU EVER HAD AN STD?NO LMP:07/2017 REVIEWED WITH PATIENT 08/30/18 1107 JS. HOSPITALIZATION/MAJOR DIAGNOSTIC PROCEDURE CHILD REVIEW OF SYSTEMS REVIEWED BY: PROVIDER: JOSE MANZANO MD . CONSTITUTIONAL: ANY CHANGE IN YOUR MEDICAL CONDITION? NO . CHILLS NO . FEVER NO . INFECTION: DO YOU HAVE NEW INFECTIONS? NO . DO YOU HAVE HISTORY OF MRSA? YES, LEFT BUTTOCK 3 YEARS AGO . MUSCULOSKELETAL: ANY NEW PATTERNS OF PAIN OR NUMBNESS? YES, PAIN IS BETTER SINCE TRIGGER POINTS . GASTROENTEROLOGY: ANY NEW CHANGE IN BOWEL CONTROL? NO . GENITOURINARY: ANY NEW CHANGE IN BLADDER CONTROL? NO . IS THERE A CHANCE YOU COULD BE ? NO . HEMATOLOGY/LYMPH: DO YOU TAKE ANY BLOOD THINNERS? (FOR EXAMPLE- COUMADIN, PLAVIX, AGGRENOX, PLATEL, PRADAXA, OR XARELTO) NO . WHEN WAS YOUR LAST DOSE? DATE: TIME: . NEUROLOGY: HAVE YOU FALLEN IN THE PAST 12 MONTHS? YES, ONCE A COUPLE OF MONTHS AGO, HAD ABRASION RIGHT KNEE. NOT EVALUATED AFTER . ANY NEW EXTREMITY NUMBNESS OR WEAKNESS? NO . CARDIOLOGY: DO YOU HAVE A PACEMAKER OR DEFIBRILLATOR? NO . RESPIRATORY: HAVE YOU BEEN SICK IN THE PAST WEEK? NO . FEVER NO . FLU LIKE SYMPTOMS? NO . COUGH NO . INTEGUMENTARY: DO YOU HAVE ANY RASHES OR OPEN SORES? NO . ALLERGIC/IMMUNO: ARE YOU ALLERGIC TO IV DYE? NO . ANY NEW ALLERGIES? NO . PSYCHIATRIC: DO YOU HAVE THOUGHTS OF HURTING YOURSELF OR SOMEONE ELSE? NO . ARE YOU ABUSED, NEGLECTED, OR IN AN UNSAFE ENVIRONMENT? NO . ENDOCRINOLOGY: ARE YOU DIABETIC? NO . OTHER: DO YOU NEED ANY PRESCRIPTIONS? NO . IF YES, PLEASE LIST: ____ . ANY NEW PROBLEMS WITH YOUR MEDICATIONS? NO . WHEN DID YOU LAST EAT? ____ . WHEN DID YOU LAST DRINK? ____ . WHAT DID YOU LAST DRINK? ____ . NAME OF PERSON DRIVING YOU HOME? ____ . DO YOU HAVE ANY OTHER QUESTIONS OR CONCERNS NO . VITAL SIGNS WT 189.8 LBS, HT 64 IN, BMI 32.58 INDEX, BP 101/70 MM HG, HR 89 /MIN, RR 18 /MIN, TEMP 97.7 F, OXYGEN SAT % 95, SAFE IN ENV? (Y/N) Y, NA INITIALS MP 1126, REVIEWED BY: MAURO. EXAMINATION GENERAL EXAMINATION: PATIENT IS ALERT O X 3 AND COOPERATIVE. ASSESSMENTS MYALGIA, OTHER SITE - M79.18 (PRIMARY) TREATMENT MYALGIA, OTHER SITE CLINICAL NOTES: WE DISCUSSED SEVERAL ISSUES WITH MRS. WHITE'S PAIN MANAGEMENT CASE. THE PATIENT REPORTS DOING WELL, SO WE WILL NOT BE MOVING FORWARD WITH ANY INTERVENTIONS AT THIS TIME. THE PATIENT WILL FOLLOW UP IN 2 MONTHS. INSTRUCTIONS WERE GIVEN, QUESTIONS WERE ANSWERED, PATIENT REPORTS UNDERSTANDING AND AGREES WITH THE PLAN. I, CHER BROWN, DOCUMENTED THE ABOVE INFORMATION ACTING A SCRIBE FOR DR. MANZANO. I HAVE REVIEWED THE ABOVE DOCUMENT, WRITTEN BY CHER MCCALLUMIBIgor AND I VERIFY THAT IT IS ACCURATE. . PROCEDURE CODES FA211 ESTABILISHED PATIENT [facility] FACILITY CHARGE [id number] CURRENT MEDS W/DOSAGES DOCUMENTED [id number] PAIN ASSESS POS TOOL F/U PLAN DOC DISPOSITION & COMMUNICATION FOLLOW UP 2 MONTHS (REASON: LOW BACK) ELECTRONICALLY SIGNED BY JOSE MANZANO MD, MD ON 11/30/2018 AT 05:55 PM EDT DISCLAIMER : THIS IS A VISIT SUMMARY EXTRACTED FROM THE [employer] CHART. IT IS NOT A COPY OF THE [employer] PROGRESS NOTE. MTDD
== END ==
LOC: M PAIN 10:45
PROVIDERS: ATTEND Anesthesiology
DX: M79.18 Myalgia, other site (principal); Z86.59 Personal history of other mental and behavioral disorders; G47.00 Insomnia, unspecified; J45.909 Unspecified asthma, uncomplicated; Z88.1 Allergy status to other antibiotic agents; Z86.14 Personal history of Methicillin resistant Staphylococcus aureus infection; Z79.84 Long term (current) use of oral hypoglycemic drugs; Z79.891 Long term (current) use of opiate analgesic; Z79.899 Other long term (current) drug therapy

== ENCOUNTER → 2019-01-17 | Outpatient (REF) | payer OTHER, MEDICAID ==
[2019-01-17 13:21] LABS: ALBUMIN 3.7 GM/DL (3.2-5.2); ALT/SGPT 18 U/L (12-78); BILIRUBIN,TOTAL 0.2 MG/DL (0.2-1.0); BLOOD UREA NITROGEN 10 MG/DL (7-18); CALCIUM LEVEL 9.4 MG/DL (8.5-10.1); CARBON DIOXIDE LEVEL 30 MEQ/L (21-32); CHLORIDE LEVEL 107 MEQ/L (98-107); CHOLESTEROL LEVEL 223 MG/DL (<200); CHOLESTEROL RISK RATIO 6.027 (<5); GLOMERULAR FILTRATION RATE > 60.0 (>60); GLUCOSE, FASTING 105 MG/DL (70-100); HDL CHOLESTEROL 37 MG/DL (>40); LDL CHOLESTEROL 117 MG/DL (<100); NON-HDL-C 186 MG/DL; POTASSIUM SERUM 3.9 MEQ/L (3.5-5.1); SODIUM LEVEL 142 MEQ/L (136-145); TOTAL PROTEIN 7.6 GM/DL (6.4-8.2); TRIGLYCERIDES LEVEL 346 MG/DL (<150)
== END ==
LOC: M LAB REF 12:45
PROVIDERS: ATTEND Family Medicine Addiction Medicine
DX: E78.49 Other hyperlipidemia (principal)

== ENCOUNTER → 2019-01-21 | Outpatient (CLI) | payer OTHER ==
--- NOTE | 2019-01-23 01:31 | ECWPNPC ---
PATIENT NAME: LOREN WHITE : 1980 GENDER: FEMALE VISIT DATE: 01/21/2019 DISCHARGE DATE: 01/21/19 1527 VISIT LOCKED DATE TIME: PHYSICIAN: JANNA HERNANDEZ RESOURCE: JANNA HERNANDEZ REASON FOR APPOINTMENT 1. LOW BACK HISTORY OF PRESENT ILLNESS HISTORY OF PRESENT ILLNESS: PAIN THE PATIENT DESCRIBES THE PAIN... 38 YEAR OLD FEMALE IN FOR CHRONIC PAIN FOLLOW UP. SHE RATES HER PAIN AT A 5/10 CURRENTLY AND DESCRIBES IT ACHING, SORE, TENDER, AND SHARP. FALL RISK SCREENING: SCREENING :NO FALLS REPORTED IN THE LAST YEAR CURRENT MEDICATIONS TAKING EFFEXOR XR 150 MG CAPSULE EXTENDED RELEASE 24 HOUR 1 CAPSULE WITH FOOD ORALLY ONCE A DAY TAKING EFFEXOR XR 75 MG CAPSULE EXTENDED RELEASE 24 HOUR 1 CAPSULE WITH FOOD ORALLY ONCE A DAY TAKING TRAZODONE HCL 150 MG TABLET 1 TABLET AT BEDTIME NEEDED ORALLY ONCE A DAY TAKING TOPAMAX 50 MG TABLET 1 TABLET ORALLY TWICE A DAY TAKING METHADONE HCL 10 MG/5ML SOLUTION 155 MG LIQUID ORALLY DAILY TAKING GABAPENTIN 300 MG CAPSULE 1 CAPSULE ORALLY TID TAKING CETIRIZINE HCL 10 MG TABLET 1 TABLET ORALLY ONCE A DAY TAKING METFORMIN HCL ER 750 MG TABLET EXTENDED RELEASE 24 HOUR 1 TABLET WITH EVENING MEAL ORALLY ONCE A DAY TAKING SUMATRIPTAN SUCCINATE 100 MG TABLET 1 TABLET NEEDED ORALLY TWICE A DAY TAKING VENTOLIN HFA 108 (90 BASE) MCG/ACT AEROSOL SOLUTION 2 PUFFS NEEDED INHALATION EVERY 6 HRS TAKING IBUPROFEN 800 MG TABLET 1 TABLET WITH FOOD OR MILK NEEDED ORALLY THREE TIMES A DAY TAKING EXCEDRIN EXTRA STRENGTH 250-250-65 MG TABLET 2 TABLETS NEEDED ORALLY ONCE A DAY TAKING MULTI COMPLETE - CAPSULE 1 CAP ORALLY DAILY NOT-TAKING RISPERIDONE 0.5 MG TABLET 1 TABLET ORALLY BID NOT-TAKING IMITREX 50 MG TABLET 2 TABS ORALLY NEEDED NOT-TAKING COLACE 100 MG CAPSULE 1 CAPSULE NEEDED ORALLY ONCE A DAY NOT-TAKING MIRALAX - PACKET 1 PACKET MIXED WITH 8 OUNCES OF FLUID ORALLY ONCE A DAY NOT-TAKING MAVYRET 100-40 MG TABLET 3 TABLETS ORALLY ONCE A DAY MEDICATION LIST REVIEWED AND RECONCILED WITH THE PATIENT PAST MEDICAL HISTORY CHRONIC HEPATITIS C HEPATITIS C VIRAL LOAD 284,000 AST 35 ALT 80 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 MAJOR DEPRESSION SEASONAL ALLERGIES INSOMNIA TATOOS ON RIGHT LEG AND ARM ASTHMA ANXIETY SPONDYLOSIS LUMBAR REGION WITH RADICULOPATHY MYALGIA INTERVERTEBRAL DISC DISORDER WITH RADICULOPATHY OF LUMBAR REGION ALLERGIES KEFLEX: ANAPHYLAXIS - ALLERGY SEASONAL: ALLERGY SURGICAL HISTORY CARPAL TUNNEL SURGERY-LEFT 2018 TUBAL LIGATION 2006 FAMILY HISTORY SIBLINGS: ALIVE, BROTHER-BIPOLAR, SCHIZOPHRENIA 1 SON(S) , 2 DAUGHTER(S) . PATIENT WAS ADOPTED, DOES NOT KNOW FAMILY HISTORY.DAUGHTER - AUTISM, BI-POLAR. SOCIAL HISTORY GENERAL: TOBACCO USE ARE YOU A:CURRENT SMOKER ARE YOU INTERESTED IN QUITTING?NOT READY TO QUIT COUNSELED THE PATIENT ON SMOKING EFFECTS, EDUCATION OEEOSATW65/28/2019 HOW MANY CIGARETTES A DAY DO YOU SMOKE?6-10 HOW SOON AFTER YOU WAKE UP DO YOU SMOKE YOUR FIRST CIGARETTE?6-30 MIN HOW OFTEN DO YOU SMOKE CIGARETTES?EVERY DAY PATIENT COUNSELED ON THE DANGERS OF TOBACCO USE AND URGED TO QUIT:11/19/2018 SMOKING CESSATION INFORMATION GIVEN01/01/2018 HIV / HEP-C SCREENING HIV TEST OFFERED TO PATIENT:YES DATE OFFERED:08/06/2017 TEST ACCEPTED:NO REASON:OTHER (DOCUMENT IN NOTE) PER PT SCREENED NEGATIVE HEP-C TEST OFFERED TO PATIENT:YES STATES TEST WAS NOT POSITIVE OTHERS AT HOME: NONE. HOUSING: RENTS APARTMENT. EDUCATION LEVEL OF EDUCATION:FINISHED HIGH SCHOOL DIET: REGULAR. LANGUAGE LANGUAGES SPOKEN:GREEK DOMESTIC VIOLENCE DO YOU FEEL SAFE IN YOUR ENVIRONMENT?YES RECREATIONAL DRUG USE DRUG USE?YES ADDICTION OPIATES IN PAST, HAS BEEN SOBER FOR 16 MONTHS EXERCISE: NONE. LEARNING BARRIERS / SPECIAL NEEDS BARRIERS TO LEARNING?NO HEARING IMPAIRED?NO VISION IMPAIRED?YES :CORRECTIVE LENSES GLASSES COGNITIVELY IMPAIRED?NO READINESS TO LEARN?YES LEARNING PREFERENCES?NO LEARNING CAPABILITIES PRESENT?YES EMOTIONAL BARRIERS?YES COMMENTSDOCUMENTED IN NOTES SECTION> DRUG ADDICTION SPECIAL DEVICES?NO BEDSPREAD CUTTER HAND NEEDED?NO PAIN CLINIC PFS, CLERGY, PUBLIC HEALTH REFERRALS HAS THE PATIENT BEEN EDUCATED REGARDING HIS/HER PLAN OF CARE?YES HAS THE PATIENT BEEN EDUCATED REGARDING PAIN, THE RISK FOR PAIN, THE IMPORTANCE OF EFFECTIVE PAIN MANAGEMENT, AND THE PAIN ASSESSMENT PROCESS?YES LATEX QUESTIONNAIRE LATEX ALLERGY : HAVE YOU EVER DEVELOPED ANY TYPE OF REACTION AFTER HANDLING LATEX PRODUCTS SUCH RUBBER GLOVES, CONDOMS, DIAPHRAGMS, BALLOONS, SOCKS, OR UNDERWEAR?NO LATEX ALLERGY : HAVE YOU EVER DEVELOPED ANY TYPE OF REACTION DURING OR AFTER DENTAL APPOINTMENT, VAGINAL/RECTAL EXAMINATION, SURGICAL PROCEDURE, OR ANY OTHER EXPOSURE?NO LATEX RISK : HAVE YOU EVER HAD ANY DIFFICULTY BREATHING OR HIVES AFTER EATING OR HANDLING ANY FRUITS, OR VEGETABLES; SUCH KIWI, BANANAS, STONE FRUITS, OR CHESTNUTSNO LATEX RISK : DO YOU HAVE A PREVIOUS PERSONAL HISTORY OF MORE THAN NINE SURGERIES, SPINA BIFIDA, OR REPEATED CATHERIZATIONS? NO LATEX RISK : ARE YOU FREQUENTLY EXPOSED TO LATEX PRODUCTS IN YOUR OCCUPATION?NO DATE ASKED : 11/19/2018 CAFFEINE CAFFEINE USE?YES ADVANCE DIRECTIVE ADVANCE DIRECTIVE DISCUSSED WITH PATIENT:YES 11/19/18 PT DOES NOT HAVE ANY ADVANCED DIRECTIVES AND SHE DECLINES INFORMATION ON HCP AT THIS TIME. AD VOODOO [id number] ZOROASTRIANISM MARITAL STATUS: BUT, AND SINGLE. ALCOHOL SCREENING DID YOU HAVE A DRINK CONTAINING ALCOHOL IN THE PAST YEAR?NO POINTS0 INTERPRETATIONNEGATIVE OCCUPATION: UNEMPLOYED HAS BEEN (INCARCERATED)6MONTHS. SEXUAL HX HAD SEX IN THE LAST 12 MONTHS (VAGINAL, ORAL, OR ANAL)?NO HAVE YOU EVER HAD AN STD?NO LMP:07/2017 REVIEWED WITH PATIENT 08/30/18 1107 JSREVIEWED WITH PT 01/21/19 1452 NLJ. HOSPITALIZATION/MAJOR DIAGNOSTIC PROCEDURE CHILD REVIEW OF SYSTEMS REVIEWED BY: PROVIDER: RINA JIMÉNEZ-Elsi . CONSTITUTIONAL: ANY CHANGE IN YOUR MEDICAL CONDITION? NO . CHILLS NO . FEVER NO . INFECTION: DO YOU HAVE NEW INFECTIONS? NO . DO YOU HAVE HISTORY OF MRSA? NO . MUSCULOSKELETAL: ANY NEW PATTERNS OF PAIN OR NUMBNESS? YES- PAIN REMIANS IN LOWER BACK AND DOWN BILATERAL LEGS . GASTROENTEROLOGY: ANY NEW CHANGE IN BOWEL CONTROL? NO . GENITOURINARY: ANY NEW CHANGE IN BLADDER CONTROL? NO . IS THERE A CHANCE YOU COULD BE ? NO . HEMATOLOGY/LYMPH: DO YOU TAKE ANY BLOOD THINNERS? (FOR EXAMPLE- COUMADIN, PLAVIX, AGGRENOX, PLATEL, PRADAXA, OR XARELTO) NO . WHEN WAS YOUR LAST DOSE? DATE: TIME: . NEUROLOGY: HAVE YOU FALLEN IN THE PAST 12 MONTHS? NO . ANY NEW EXTREMITY NUMBNESS OR WEAKNESS? YES- PAIN REMAINS IN LOWER BACK AND DOWN BOTH LEGS . CARDIOLOGY: DO YOU HAVE A PACEMAKER OR DEFIBRILLATOR? NO . RESPIRATORY: HAVE YOU BEEN SICK IN THE PAST WEEK? NO . FEVER NO . FLU LIKE SYMPTOMS? NO . COUGH NO . INTEGUMENTARY: DO YOU HAVE ANY RASHES OR OPEN SORES? NO . ALLERGIC/IMMUNO: ARE YOU ALLERGIC TO IV DYE? NO . ANY NEW ALLERGIES? NO . PSYCHIATRIC: DO YOU HAVE THOUGHTS OF HURTING YOURSELF OR SOMEONE ELSE? NO . ARE YOU ABUSED, NEGLECTED, OR IN AN UNSAFE ENVIRONMENT? NO . ENDOCRINOLOGY: ARE YOU DIABETIC? NO . OTHER: DO YOU NEED ANY PRESCRIPTIONS? NO- PATIENT IS NOT SURE, STATES SHE HAS NEVER GOTTEN ANY MEDS FROM THE PAIN CENTER . IF YES, PLEASE LIST: ____ . ANY NEW PROBLEMS WITH YOUR MEDICATIONS? NO . WHEN DID YOU LAST EAT? ____ . WHEN DID YOU LAST DRINK? ____ . WHAT DID YOU LAST DRINK? ____ . NAME OF PERSON DRIVING YOU HOME? ____ . DO YOU HAVE ANY OTHER QUESTIONS OR CONCERNS YES- NOT SURE IF SHE NEEDS NEW MEDS . VITAL SIGNS WT 185 LBS, HT 64 IN, BMI 31.75 INDEX, BP 106/69 MM HG, HR 92 /MIN, RR 18 /MIN, TEMP 96.0 F, OXYGEN SAT % 92%, NA INITIALS AW 1452. EXAMINATION GENERAL EXAMINATION: GENERALNO ACUTE DISTRESS, WELL NOURISHED AND HYDRATED. PSYCHAPPROPRIATE MOOD AND AFFECT . LUNGS:CLEAR TO AUSCULTATION BILATERALLY, NO WHEEZES, RHONCHI, RALES. HEART:NO MURMURS, REGULAR RATE AND RHYTHM. ASSESSMENTS INTERVERTEBRAL DISC DISORDER WITH RADICULOPATHY OF LUMBAR REGION - M51.16 (PRIMARY) TREATMENT INTERVERTEBRAL DISC DISORDER WITH RADICULOPATHY OF LUMBAR REGION CLINICAL NOTES: 38 YEAR OLD FEMALE IN FOR CHRONIC PAIN FOLLOW UP. GIVEN PRESENTING SYMPTOMS AND RESULTS OF PHYSICAL EXAMINATION RECOMMENDED CONTINUATION OF CURRENT TX REGIMEN WITH FOLLOW UP IN 2 MONTHS. PATIENT HAS EXPRESSED UNDERSTANDING OF AND WAS IN AGREEMENT WITH TREATMENT PLAN. GIVEN TIME TO ASK QUESTIONS AND EXPRESS CONCERNS. . PROCEDURE CODES FA211 ESTABILISHED PATIENT [facility] FACILITY CHARGE DISPOSITION & COMMUNICATION FOLLOW UP 2 MONTHS (REASON: CHRONIC PAIN ) ELECTRONICALLY SIGNED BY TINO BERNAL ON 01/22/2019 AT 11:34 AM EDT DISCLAIMER : THIS IS A VISIT SUMMARY EXTRACTED FROM THE [employer] CHART. IT IS NOT A COPY OF THE [employer] PROGRESS NOTE. PARKER
== END ==
LOC: M PAIN 14:45
PROVIDERS: ATTEND Family Medicine
DX: M51.16 Intervertebral disc disorders with radiculopathy, lumbar region (principal); B18.2 Chronic viral hepatitis C; F32.9 Major depressive disorder, single episode, unspecified; J45.909 Unspecified asthma, uncomplicated; G47.00 Insomnia, unspecified; F41.9 Anxiety disorder, unspecified; M79.18 Myalgia, other site; F17.210 Nicotine dependence, cigarettes, uncomplicated; Z79.84 Long term (current) use of oral hypoglycemic drugs; Z79.899 Other long term (current) drug therapy; Z88.1 Allergy status to other antibiotic agents

== ENCOUNTER → 2019-02-26 | Outpatient (REF) | payer OTHER ==
[~2019-02-26] MED LIST changes: -ALL10TAB28 PO; +ALL10TAB29 PO
[2019-02-26 13:25] LABS: HEMATOCRIT 44.4 % (36.0-47.0); HEMOGLOBIN 14.1 g/dl (12.0-15.5); MEAN CORPUSCULAR HEMOGLOBIN 30.1 pg (27.0-33.0); MEAN CORPUSCULAR HGB CONC 31.8 g/dl (32.0-36.5); MEAN CORPUSCULAR VOLUME 94.7 fl (80.0-96.0); PLATELET COUNT, AUTOMATED 272 10^3/uL (150-450); RED BLOOD COUNT 4.69 10^6/uL (4.00-5.40); WHITE BLOOD COUNT 6.5 10^3/uL (4.0-10.0)
[2019-02-26 13:40] LABS: ALBUMIN 3.7 GM/DL (3.2-5.2); ALT/SGPT 16 U/L (12-78); BILIRUBIN,TOTAL 0.4 MG/DL (0.2-1.0); BLOOD UREA NITROGEN 11 MG/DL (7-18); CALCIUM LEVEL 9.4 MG/DL (8.5-10.1); CARBON DIOXIDE LEVEL 27 MEQ/L (21-32); CHLORIDE LEVEL 107 MEQ/L (98-107); CREATININE FOR GFR 0.86 MG/DL (0.55-1.30); GLOMERULAR FILTRATION RATE > 60.0 (>60); GLUCOSE, FASTING 79 MG/DL (70-100); POTASSIUM SERUM 3.9 MEQ/L (3.5-5.1); SODIUM LEVEL 143 MEQ/L (136-145); TOTAL PROTEIN 7.4 GM/DL (6.4-8.2)
[2019-02-26 13:53] LABS: HEPATITIS B SURFACE ANTIGEN NEGATIVE (NEGATIVE)
[2019-02-26 14:22] LABS: HIV 1&2 SCREEN CENTAUR NEGATIVE (NEGATIVE)
[2019-02-26 14:30] LABS: HEPATITIS C VIRUS ABY INDEX > 11.0 INDEX (<0.8)
[2019-02-26 14:53] LABS: CHLAMYDIA DNA AMPLIFICATION NEGATIVE (NEGATIVE); GC DNA AMPLIFICATION NEGATIVE (NEGATIVE)
[2019-02-26 16:21] LABS: HCG, SERUM QUALITATIVE NEGATIVE (NEGATIVE)
== END ==
LOC: M LABDRWAD 12:05
PROVIDERS: ATTEND Family Medicine
DX: F11.20 Opioid dependence, uncomplicated (principal)

== ENCOUNTER → 2019-03-04 | Outpatient (CLI) | payer OTHER ==
--- NOTE | 2019-03-04 18:24 | ECGEPIP ---
[facility] Test Date: 2019-03-04 Pat Name: LOREN WHITE Department: Room: - Gender: Female Sheep Shearer: : 1980 Requested By: Mitch Higgins Order Number: [id number] Reading MD: Clemente De Dios Measurements Intervals [place] Rate: 66 P: 12 OK: 186 QRS: 10 QRSD: 94 T: 5 QT: 403 QTc: 423 Interpretive Statements Normal sinus rhythm LA conduction disturbance? Nonspecific ST/T-wave abnormalities changed from 10/01/17 Clinical correlation advised Electronically Signed on 03-04-2019 18:24:45 EDT by Clemente De Dios
== END ==
LOC: M EKG 09:18
PROVIDERS: ATTEND Family Medicine
DX: F11.20 Opioid dependence, uncomplicated (principal)

== ENCOUNTER 2019-03-14 16:15 | Inpatient (IN) | payer OTHER ==
[~2019-03-14] VITALS: Ht 172.7 cm; Wt 85.3 kg
[2019-03-14] MEDS ORDERED: NALOXONE INJ 2 MG/2 ML SYRINGE (J2310) As Ordered ONE (16:22)
[2019-03-14] MEDS ORDERED: ONDANSETRON 4MG/2ML VIAL (J2405) As Ordered ONE (16:34)
[2019-03-14] MEDS ORDERED: NALOXONE INJ 2 MG/2 ML SYRINGE (J2310) IV STA ×2 (16:43)
[2019-03-14] MEDS ORDERED: ONDANSETRON 4MG/2ML VIAL (J2405) IV ONE (16:45)
[2019-03-14] MEDS ORDERED: NS 1,000 ML IV ONE ×2 (16:45→19:00)
[2019-03-14 17:57] LABS: BASO % 0.2 % (0.0-1.0); HEMATOCRIT 43.4 % (36.0-47.0); HEMOGLOBIN 13.2 g/dl (12.0-15.5); LYMPH # 1.5 10^3/uL (1.5-5.0); LYMPH % 10.7 % (24.0-44.0); MEAN CORPUSCULAR HEMOGLOBIN 29.4 pg (27.0-33.0); MEAN CORPUSCULAR HGB CONC 30.4 g/dl (32.0-36.5); MEAN CORPUSCULAR VOLUME 96.7 fl (80.0-96.0); MONO # 0.8 10^3/uL (0.0-0.8); MONO % 5.5 % (0.0-5.0); NEUTROPHILS # 11.4 10^3/uL (1.5-8.5); NEUTROPHILS % 82.5 % (36.0-66.0); PLATELET COUNT, AUTOMATED 219 10^3/uL (150-450); RED BLOOD COUNT 4.49 10^6/uL (4.00-5.40); WHITE BLOOD COUNT 13.8 10^3/uL (4.0-10.0)
[2019-03-14] MEDS ORDERED: ISOVUE-370 76% 100ML VIAL (Q9967) As Ordered ONE (18:03)
[2019-03-14 18:35] LABS: HCG, SERUM QUALITATIVE NEGATIVE (NEGATIVE)
--- NOTE | 2019-03-14 18:37 | REPVR ---
PROCEDURE INFORMATION: Exam: CT Head Without Contrast Exam date and time: 03/14/2019 6:18 PM Clinical history: 38 years old, female; Altered mental status/memory loss; Confusion or disorientation TECHNIQUE: Imaging protocol: Computed tomography of the head without contrast. Radiation optimization: All CT scans at this facility use at least one of these dose optimization techniques: automated exposure control; mA and/or kV adjustment per patient size (includes targeted exams where dose is matched to clinical indication); or iterative reconstruction. COMPARISON: No relevant prior studies available. FINDINGS: Brain: Normal. No hemorrhage. Unremarkable white matter. No mass effect. Ventricles: Normal. No ventriculomegaly. Bones/joints: Unremarkable. No acute fracture. Sinuses: Visualized sinuses are unremarkable. No fluid levels. Mastoid air cells: Visualized mastoid air cells are well aerated. Soft tissues: Unremarkable. IMPRESSION: No acute intracranial abnormality. Electronically signed by: Oz Jon On 03/14/2019 18:37:00 PM
[2019-03-14 18:39] LABS: ACETAMINOPHEN LEVEL < 2.0 UG/ML (10.0-30.0); ALBUMIN 3.7 GM/DL (3.2-5.2); ALT/SGPT 17 U/L (12-78); BILIRUBIN,DIRECT < 0.1 MG/DL (0.0-0.2); BILIRUBIN,TOTAL 0.1 MG/DL (0.2-1.0); BLOOD UREA NITROGEN 9 MG/DL (7-18); CALCIUM LEVEL 9.2 MG/DL (8.5-10.1); CARBON DIOXIDE LEVEL 26 MEQ/L (21-32); CHLORIDE LEVEL 102 MEQ/L (98-107); CPK CREATINE PHOSPHOKINASE 40 U/L (26-192); CREATININE FOR GFR 0.92 MG/DL (0.55-1.30); ETHYL ALCOHOL (ETHANOL) < 0.003 % (0.000-0.010); GLOMERULAR FILTRATION RATE > 60.0 (>60); GLUCOSE, FASTING 120 MG/DL (70-100); POTASSIUM SERUM 4.4 MEQ/L (3.5-5.1); SALICYLATE LEVEL 2.9 MG/DL (5.0-30.0); SODIUM LEVEL 142 MEQ/L (136-145); THYROID STIMULATING HORMONE 0.272 uIU/ML (0.358-3.740); TOTAL PROTEIN 7.6 GM/DL (6.4-8.2)
--- NOTE | 2019-03-14 18:41 | REPVR ---
PROCEDURE INFORMATION: Exam: CT Cervical Spine Without Contrast Exam date and time: 03/14/2019 6:18 PM Clinical history: 38 years old, female; Other: AMS; Additional info: Altered mental status TECHNIQUE: Imaging protocol: Computed tomography images of the cervical spine without contrast. Radiation optimization: All CT scans at this facility use at least one of these dose optimization techniques: automated exposure control; mA and/or kV adjustment per patient size (includes targeted exams where dose is matched to clinical indication); or iterative reconstruction. COMPARISON: No relevant prior studies available. FINDINGS: Vertebrae: Mild degenerative spondylosis. There is mild foraminal stenosis on the right at C3, mild foraminal stenosis on the right at C4, mild foraminal stenosis on the left at C5 secondary to uncinate joint hypertrophic changes. Discs/Spinal canal/Neural foramina: See Vertebrae Finding. Soft tissues: Unremarkable. Lungs: Calcified granuloma right apex. Lung apices are otherwise normal. IMPRESSION: Mild degenerative spondylosis. No acute findings. Electronically signed by: Oz Jon On 03/14/2019 18:41:05 PM
--- NOTE | 2019-03-14 18:43 | REPVR ---
PROCEDURE INFORMATION: Exam: CT Chest With Contrast Exam date and time: 03/14/2019 6:18 PM Clinical history: 38 years old, female; Pain; Other: All over; Additional info: Altered mental status TECHNIQUE: Imaging protocol: Computed tomography of the chest with intravenous contrast. Radiation optimization: All CT scans at this facility use at least one of these dose optimization techniques: automated exposure control; mA and/or kV adjustment per patient size (includes targeted exams where dose is matched to clinical indication); or iterative reconstruction. Contrast material: [id number]; Contrast volume: 100 ml; Contrast route: IV; COMPARISON: CR PORTABLE CHEST X-RAY 03/14/2019 4:50 PM FINDINGS: Lungs: Calcified granuloma right pulmonary apex. Lungs otherwise clear. Pleural space: Unremarkable. No pneumothorax. No pleural effusion. Heart: Unremarkable. No cardiomegaly. No pericardial effusion. Aorta: Unremarkable. No aortic aneurysm. Lymph nodes: Unremarkable. No enlarged lymph nodes. Bones/joints: Unremarkable. No acute fracture. Soft tissues: Unremarkable. IMPRESSION: No acute findings. Electronically signed by: Oz Jon On 03/14/2019 18:43:21 PM
--- NOTE | 2019-03-14 18:47 | REPVR ---
PROCEDURE INFORMATION: Exam: CT Abdomen and Pelvis With Contrast Exam date and time: 03/14/2019 6:18 PM Clinical history: 38 years old, female; Abdominal pain; Generalized; Additional info: Altered mental status TECHNIQUE: Imaging protocol: Computed tomography of the abdomen and pelvis with intravenous contrast. Radiation optimization: All CT scans at this facility use at least one of these dose optimization techniques: automated exposure control; mA and/or kV adjustment per patient size (includes targeted exams where dose is matched to clinical indication); or iterative reconstruction. Contrast material: ISOVUE 370; Contrast volume: 100 ml; Contrast route: IV; COMPARISON: No relevant prior studies available. FINDINGS: Liver: There is a diffuse decrease in hepatic parenchymal density, consistent with fatty infiltration. Gallbladder and bile ducts: Normal. No calcified stones. No ductal dilation. Pancreas: Normal. No ductal dilation. Spleen: Normal. No splenomegaly. Adrenals: Normal. No mass. Kidneys and ureters: Normal. No hydronephrosis. Stomach and bowel: There is increased feces throughout the colon consistent with constipation. Appendix: No evidence of appendicitis. Intraperitoneal space: Unremarkable. No free air. No significant fluid collection. Vasculature: Unremarkable. No abdominal aortic aneurysm. Lymph nodes: Unremarkable. No enlarged lymph nodes. Bladder: Unremarkable as visualized. Reproductive: Unremarkable as visualized. Bones/joints: Unremarkable. No acute fracture. Soft tissues: Unremarkable. IMPRESSION: 1. There is increased feces throughout the colon consistent with constipation. 2. There is a diffuse decrease in hepatic parenchymal density, consistent with fatty infiltration. Electronically signed by: Oz Jon On 03/14/2019 18:47:23 PM
--- NOTE | 2019-03-14 19:13 | ECGEPIP ---
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
[2019-03-14 19:33] LABS: LIPASE 491 U/L (73-393)
--- NOTE | 2019-03-14 19:36 | REP ---
CHEST, PORTABLE: AP portable view of the chest is performed. Linear discoid atelectatic change is seen in each lung base with mild elevation of the right hemidiaphragm. There is no pulmonary edema. The heart is normal in size and the mediastinal silhouette is unremarkable. Electronically Signed by Mitch Layton MD 03/14/2019 09:29 P
[2019-03-14] MEDS ORDERED: NS 500 ML IV ONE (20:00)
[2019-03-14] MEDS ORDERED: GNP8.6TA PO (20:38)
[2019-03-14] MEDS ORDERED: POLY1GRA PO (20:38)
[2019-03-14] MEDS ORDERED: MULTTAB86 PO (20:38)
[2019-03-14] MEDS ORDERED: TOPI50TA9 PO (20:40)
[2019-03-14] MEDS ORDERED: METF750T36 PO (20:40)
[2019-03-14] MEDS ORDERED: RISP1TAB3 PO (20:42)
[2019-03-14] MEDS ORDERED: ONDA4TAB6 PO (20:42)
[2019-03-14] MEDS ORDERED: HALO0.5H PO (20:42)
[2019-03-14] MEDS ORDERED: EXCETAB33 PO (20:44)
[2019-03-14] MEDS ORDERED: COMMENTS (20:45)
[2019-03-14 21:43] LABS: BASO % 0.1 % (0.0-1.0); HEMATOCRIT 39.1 % (36.0-47.0); HEMOGLOBIN 12.2 g/dl (12.0-15.5); LYMPH # 1.4 10^3/uL (1.5-5.0); LYMPH % 8.5 % (24.0-44.0); MEAN CORPUSCULAR HEMOGLOBIN 30.3 pg (27.0-33.0); MEAN CORPUSCULAR HGB CONC 31.2 g/dl (32.0-36.5); MEAN CORPUSCULAR VOLUME 97.3 fl (80.0-96.0); MONO % 5.7 % (0.0-5.0); NEUTROPHILS # 14.4 10^3/uL (1.5-8.5); PLATELET COUNT, AUTOMATED 224 10^3/uL (150-450); RED BLOOD COUNT 4.02 10^6/uL (4.00-5.40)
[2019-03-14 21:51] LABS: OSMOLALITY SERUM 297 MOSM/KG (275-295)
[2019-03-14] MEDS ORDERED: MOM 30ML SUSPENSION UDC PO PRN (22:00)
[2019-03-14] MEDS ORDERED: MAALOX 30 ML SUSP *UDC PO PRN (22:00)
[2019-03-14] MEDS ORDERED: ERTAPENEM SODIUM 1 GM in NS MINI-BAG PLUS 50 ML IV ONE (22:00)
[2019-03-14] MEDS ORDERED: ACETAMINOPHEN TAB 650MG DOSE (2X325MG) PO PRN (22:00)
[2019-03-14] MEDS ORDERED: SUMAtriptan SUCCINATE 25 MG TAB PO PRN (22:15)
[2019-03-14] MEDS ORDERED: EXCEDRIN MIGRAINE TABLET PO PRN (22:15)
[2019-03-14] MEDS: LR 1,000 ML IV SCH (22:56)
[2019-03-14] MEDS ORDERED: LORazepam 2 MG TAB PO PRN (23:30)
--- NOTE | 2019-03-14 23:48 | HPEPDOC ---
General Date of Admission Mar 14, 2019 at 21:55 Date of Service: Mar 14, 2019 Chief Complaint The patient is a 38-year-old female admitted with a reason for visit of Altered Mental Status. Source: Patient, RN/MD Exam Limitations: No limitations Timing/Duration: Day(s) Severity: Moderate History of Present Illness Ms. Ni is a 38 years old woman on methadone maintenance program. She did not show up at the program today, and police was sent to her home. She was found on bed unconscious, and brought to ER. Pt reports feeling sick with "flu like" symptoms and migraine for the past two days. She says she was napping on her bed and remembers police showing up at her home. She denies overdosing on a [place] medication or using street drug; denies being depressed or suicidal. In the ER, she was only responsive to sternal rub. She was given two doses of Narcan with response. By the time I saw her in Er, she was fully alert and oriented. Pt was hemodynamically stable; had a fever of 101.3 with flushed facial skin,. WBC 17K, lactate 7.8 (down to 3.7 after IV fluid). Pt denies neck pain, photophobia, diarrhea, dysuria, chest pain or SOB. Extensive CT and CXR are unremarkable. PAST MEDICAL HISTORY: Substance abuse. History of allergic rhinitis. History of migraines. History of bilateral carpal tunnel. History of hepatitis C. She follows with Dr. Fajardo. PAST SURGICAL HISTORY: Tubal ligation. Dilation and curettage (D and C) times two. Home Medications Scheduled Cetirizine HCl (Cetirizine HCl) 10 Mg Tab, 10 MG PO DAILY, (Reported) Gabapentin (Gabapentin) 300 Mg Cap, 300 MG PO TID, (Reported) Glecaprevir/Pibrentasvir (Mavyret 100-40 mg Tablet) 1 Tab Tab, 3 TAB PO DAILY, (Reported) PATIENT HAS THIS RX FILLED AT [facility] IN [place] THROUGH [facility]. SHE HAS THE MEDICATION AT HER HOUSE BUT HAS NO ONE TO PICK IT UP FOR USE FOR THIS ADMISSION Haloperidol (Haloperidol) 0.5 Mg Tablet, 0.5 MG PO DAILY, (Reported) Metformin HCl (Metformin HCl ER) 750 Mg Tab.er.24h, 750 MG PO DAILY, (Reported) Methadone HCl (Methadone HCl) 10 Mg/Ml Con, 115 MG PO DAILY, (Reported) Multivitamin (Multi-Vitamin Daily) 1 Each Tablet, 1 TAB PO DAILY, (Reported) Risperidone (Risperidone) 1 Mg Tablet, 1 MG PO QAM, (Reported) Sennosides (Senna Lax) 8.6 Mg Tablet, 8.6 MG PO BID, (Reported) Topiramate (Topiramate) 50 Mg Tablet, 50 MG PO BID, (Reported) Trazodone HCl (Trazodone HCl) 150 Mg Tab, 150 MG PO QHS, (Reported) Venlafaxine HCl (Venlafaxine HCl ER) 150 Mg Cap, 150 MG PO DAILY, (Reported) TAKES WITH 75MG FOR 225MG TOTAL Venlafaxine HCl (Venlafaxine HCl ER) 75 Mg Capcr, 75 MG PO DAILY, (Reported) TAKES WITH 150MG FOR 225MG TOTAL Scheduled PRN Albuterol Sulfate (Ventolin Hfa) 108 Mcg/Act Aer, 1 PUFF INH QID PRN for SHORTNESS OF BREATH, (Reported) Aspirin/Acetaminophen/Caffeine (Excedrin Migraine Caplet) 1 Each Tablet, 2 TAB- CAP PO BID PRN for HEADACHE, (Reported) Docusate Sodium (Dok) 100 Mg Tab, 200 MG PO DAILY PRN for CONSTIPATION, (Reported) Methadone HCl (Methadone HCl) 10 Mg/Ml Con, 3.5 ML PO DAILY PRN for PAIN, (Reported) Ondansetron (Ondansetron Odt) 4 Mg Tab.rapdis, 4 MG PO Q6H PRN for NAUSEA OR VOMITING, (Reported) Polyethylene Glycol 8000 (Polyethylene Glycol) 500 Gm Powder, 17 GM PO DAILY PRN for CONSTIPATION, (Reported) Sumatriptan Succinate (Imitrex) 100 Mg Tab, 100 MG PO DAILY PRN for MIGRAINE, (Reported) MAY REPEAT AFTER 2 HOURS IF SYMPTOMS PERSIST Miscellaneous Medications [Comments] , (Reported) MED REC COMPLETED WITH EXT. MED HISTORY. Allergies Coded Allergies: cephalexin (Verified Allergy, Intermediate, SHOCK, 03/14/19) Social History * Smoker: current smoker Alcohol: Denies Drugs: other (on methadone proram) A-FIB/CHADSVASC A-FIB History Current/History of A-Fib/PAF?: No Review of Systems Constitutional: Reports: Fever, Malaise; Denies: Chills Eyes: Denies: Pain, Vision change ENT: Denies: Head Aches, Ear Pain, Dysphagia Skin: Denies: Rash, Lesions, Jaundice, Breakdown Pulmonary: Denies: Dyspnea, Cough Cardiovascular: Denies: Chest Pain, Palpitations, Orthopnea, Paroxysmal Noc. Dyspnea, Edema Gastrointestinal: Denies: Nausea, Vomiting, Abdominal Pain, Diarrhea Genitourinary: Denies: Dysuria, Frequency Hematologic: Denies: Bruising Endocrine: Denies: Polydipsia, Polyphagia Musculoskeletal: Denies: Neck Pain, Back Pain Neurological: Denies: Weakness, Numbness Psych: Reports: Mood Normal; Denies: Anxiety Physical Examination General Exam: Positive: Alert, Cooperative, No Acute Distress Eye Exam: Positive: PERRLA, Conjunctiva & lids normal ENT Exam: Positive: Atraumatic, Mucous membr. moist/pink, Pharynx Normal Neck Exam: Positive: Supple; Negative: JVD Chest Exam: Positive: Clear to auscultation, Normal air movement; Negative: Rales, Rhonchi, Wheezing Heart Exam: Positive: Rate Normal, Regular Rhythm; Negative: Murmurs Telemetry: Positive: No significant arrhythmia Abdomen Exam: Positive: Normal bowel sounds, Soft; Negative: Tenderness Extremity Exam: Negative: Edema Skin Exam: Positive: Other skin issue (flushed facial skin); Negative: Nl turgor and temperature Neuro Exam: Positive: Normal Speech, Strength at 5/5 X4 ext, Normal Tone Psych Exam: Positive: Mental status NL, Mood NL; Negative: Anxiety Vital Signs Vital Signs Date Time Temp Pulse Resp B/P (MAP) Pulse Ox O2 Delivery O2 Flow Rate FiO2 03/14/19 22:46 108 18 153/89 (110) 95 03/14/19 22:38 101.2 03/14/19 20:31 Room Air Laboratory Data Labs 24H Laboratory Tests 2 03/14/19 16:21: Bedside Glucose (Misc Panel) 143H 03/14/19 16:57: POC pH (Misc Panel) 7.331L, POC Base Excess (Misc Panel) 4.0H, POC Saturated Percent O2 (Misc) 57L, POC pO2 (Misc Panel) 32.0*L, POC pCO2 (Misc Panel) 57.1H, POC HCO3 (Misc Panel) 30.2H, POC Total CO2 (Misc Panel) 32.0H 03/14/19 17:39: Immature Granulocyte % (Auto) 1.1, White Blood Count 13.8H, Red Blood Count 4.49, Hemoglobin 13.2, Hematocrit 43.4, Mean Corpuscular Volume 96.7H, Mean Corpuscular Hemoglobin 29.4, Mean Corpuscular Hemoglobin Concent 30.4L, Red Cell Distribution Width 12.5, Platelet Count 219, Neutrophils (%) (Auto) 82.5H, Lymphocytes (%) (Auto) 10.7L, Monocytes (%) (Auto) 5.5H, Eosinophils (%) (Auto) 0.0, Basophils (%) (Auto) 0.2, Neutrophils # (Auto) 11.4H, Lymphocytes # (Auto) 1.5, Monocytes # (Auto) 0.8, Eosinophils # (Auto) 0.0, Basophils # (Auto) 0.0, Nucleated Red Blood Cells % (auto) 0.0, Anion Gap 14, Glomerular Filtration Rate > 60.0, Osmolality 297H, Lactic Acid Level 7.8*H, Calcium Level 9.2, Aspartate Amino Transf (AST/SGOT) 4L, Alanine Aminotransferase (ALT/SGPT) 17, Alkaline Phosphatase 104, Total Bilirubin 0.1L, Direct Bilirubin < 0.1, Total Creatine Kinase 40, Total Protein 7.6, Albumin 3.7, Albumin/Globulin Ratio 0.95L, Lipase 491H, Thyroid Stimulating Hormone (TSH) 0.272L, Human Chorionic Gonadotropin, Qual NEGATIVE, Salicylates Level 2.9L, Acetaminophen Level < 2.0L, Ethyl Alcohol Level < 0.003 03/14/19 21:21: Lactic Acid Level 2.7*H 03/14/19 21:32: Immature Granulocyte % (Auto) 0.7, White Blood Count 17.0H, Red Blood Count 4.02, Hemoglobin 12.2, Hematocrit 39.1, Mean Corpuscular Volume 97.3H, Mean Corpuscular Hemoglobin 30.3, Mean Corpuscular Hemoglobin Concent 31.2L, Red Cell Distribution Width 12.3, Platelet Count 224, Neutrophils (%) (Auto) 85.0H, Lymphocytes (%) (Auto) 8.5L, Monocytes (%) (Auto) 5.7H, Eosinophils (%) (Auto) 0.0, Basophils (%) (Auto) 0.1, Neutrophils # (Auto) 14.4H, Lymphocytes # (Auto) 1.4L, Monocytes # (Auto) 1.0H, Eosinophils # (Auto) 0.0, Basophils # (Auto) 0.0, Nucleated Red Blood Cells % (auto) 0.2H 03/14/19 22:25: Lactic Acid Followup at 4 Hours 3.7*H, Free Thyroxine 1.00 CBC/BMP Laboratory Tests 03/14/19 17:39 Red Blood Count 4.49, Mean Corpuscular Volume 96.7 H, Mean Corpuscular Hemoglobin 29.4, Mean Corpuscular Hemoglobin Concent 30.4 L, Red Cell Distribution Width 12.5, Neutrophils (%) (Auto) 82.5 H, Lymphocytes (%) (Auto) 10.7 L, Monocytes (%) (Auto) 5.5 H, Eosinophils (%) (Auto) 0.0, Basophils (%) (Auto) 0.2, Neutrophils # (Auto) 11.4 H, Lymphocytes # (Auto) 1.5, Monocytes # (Auto) 0.8, Eosinophils # (Auto) 0.0, Basophils # (Auto) 0.0 03/14/19 21:32 Red Blood Count 4.02, Mean Corpuscular Volume 97.3 H, Mean Corpuscular Hemoglobin 30.3, Mean Corpuscular Hemoglobin Concent 31.2 L, Red Cell Distribution Width 12.3, Neutrophils (%) (Auto) 85.0 H, Lymphocytes (%) (Auto) 8.5 L, Monocytes (%) (Auto) 5.7 H, Eosinophils (%) (Auto) 0.0, Basophils (%) (Auto) 0.1, Neutrophils # (Auto) 14.4 H, Lymphocytes # (Auto) 1.4 L, Monocytes # (Auto) 1.0 H, Eosinophils # (Auto) 0.0, Basophils # (Auto) 0.0 Microbiology Microbiology 03/14/19 Blood Culture, Received Pending 03/14/19 Blood Culture, Received Pending Assessment/Plan Acute Encephalopathy of unclear source; ?Drug Overdose; Fever, suspect viral illness, Hyperlactatemia - Admit to inpatient on 1:1 observation for now - Verify methadone program and re-instate regular methadone dose; Ativan prn in the meantime for signs of withdrawal or anxiety - IV Fluid - One dose of Ertapenem empirically (pt is allergic to Cephalosporin); will cover for 24 hours while infectious w/u are in progress - No meningeal signs to suspect meningitis - Respiratory panel, blood c/s; UA - Repeat lactate, CBC and CMP in the morning Continue home meds for other chronic conditions. Plan / VTE VTE Prophylaxis Ordered?: Yes Plan IVF: Initiate Diet: Continue Current Activity: Continue Current Diagnostics: Repeat Labs in AM Anticipated Discharge: Home JESSE ROBBINS MD Mar 14, 2019 23:40
[2019-03-15 02:49] VITALS: BP 119/77
[2019-03-15] MEDS: LR 1,000 ML IV SCH ×3 (03:06→12:03)
[2019-03-15 06:00] VITALS: BP 126/78
[2019-03-15 06:22] LABS: HEMOGLOBIN 10.9 g/dl (12.0-15.5); MEAN CORPUSCULAR HEMOGLOBIN 30.1 pg (27.0-33.0); MEAN CORPUSCULAR HGB CONC 31.1 g/dl (32.0-36.5); MEAN CORPUSCULAR VOLUME 96.7 fl (80.0-96.0); PLATELET COUNT, AUTOMATED 206 10^3/uL (150-450); RED BLOOD COUNT 3.62 10^6/uL (4.00-5.40)
[2019-03-15 06:46] LABS: ALBUMIN 2.9 GM/DL (3.2-5.2); ALT/SGPT 13 U/L (12-78); BILIRUBIN,TOTAL 0.2 MG/DL (0.2-1.0); BLOOD UREA NITROGEN 10 MG/DL (7-18); CALCIUM LEVEL 8.5 MG/DL (8.5-10.1); CARBON DIOXIDE LEVEL 30 MEQ/L (21-32); CHLORIDE LEVEL 107 MEQ/L (98-107); CREATININE FOR GFR 0.61 MG/DL (0.55-1.30); GLOMERULAR FILTRATION RATE > 60.0 (>60); GLUCOSE, FASTING 106 MG/DL (70-100); MAGNESIUM LEVEL 1.8 MG/DL (1.8-2.4); POTASSIUM SERUM 3.7 MEQ/L (3.5-5.1); SODIUM LEVEL 142 MEQ/L (136-145); TOTAL PROTEIN 6.1 GM/DL (6.4-8.2)
[2019-03-15] MEDS: HALOPERIDOL 0.5 MG TAB PO SCH (08:37)
[2019-03-15] MEDS: SENNA 8.6 MG TAB (SENOKOT) PO SCH ×2 (08:37→20:04)
[2019-03-15] MEDS: risperiDONE 1 MG TAB PO SCH (08:37)
[2019-03-15] MEDS: CETIRIZINE (ZyrTEC) 10 MG TAB PO SCH (08:37)
[2019-03-15] MEDS: VENLAFAXINE **XR** 75MG CAPSULE PO SCH (08:37)
[2019-03-15] MEDS: HEPARIN SOD (PORCINE) 5000 UNITS/ML VIAL SC SCH ×2 (08:37→20:04)
[2019-03-15] MEDS: TOPIRAMATE (TopAMAX) 25 MG TAB PO SCH ×2 (08:38→20:04)
[2019-03-15] MEDS ORDERED: INFLUENZA QUADRIVALENT PF VACCINE 0.5ML SYRINGE (90686) IM ONE (09:00)
[2019-03-15 10:00] VITALS: BP 132/82
[2019-03-15 14:00] VITALS: BP 135/89
[2019-03-15 14:33] LABS: AMPHETAMINES LEVEL URINE NEGATIVE (NEGATIVE); BARBITURATES URINE NEGATIVE (NEGATIVE); BENZODIAZEPINES URINE NEGATIVE (NEGATIVE); CANNABINOIDS URINE NEGATIVE (NEGATIVE); COCAINE METABOLITE URINE NEGATIVE (NEGATIVE); METHADONE URINE POSITIVE (NEGATIVE); OPIATES URINE NEGATIVE (NEGATIVE); PHENCYCLIDINE URINE NEGATIVE (NEGATIVE)
--- NOTE | 2019-03-15 17:07 | IPNPDOC ---
Date Seen The patient was seen on 03/15/19. Progress Note SUBJECTIVE: Patient reported feeling well today without any complaints. Stated that she felt sick to the stomach so she didn't take her methadone yesterday but did not take any excess. She feels well now and less sick like yesterday. lactic acid resolved 3.7->1.2. Tmax 101.3 last night at about 9PM but had been afebrile since WBC 14 HR noted to drop into the 40s on quality assurance monitor final at rest/while sleeping and recovers when patient awake. Asymptomatic. OBJECTIVE PHYSICAL EXAMINATION: VITAL SIGNS: Please see below. General: No acute distress, Alert Eyes: Normal sclera, EOMI, KHADIJAH HENT: Atraumatic, neck supple, moist mucous membranes Cardiovascular: Normal rate, normal rhythm. Pulmonary: Clear to auscultation b/l, no wheezing GI: Soft, nontender, nondistended Skin: Warm and dry Neuro: CN grossly intact. No focal deficits. Strengths equal b/l. Psych: oriented x 3 LABORATORY DATA, IMAGING STUDIES, MICROBIOLOGY: Please see below. DVT prophylaxis ordered?: HSQ and SCD ASSESSMENT AND PLAN: 1. Acute encephalopathy of unclear etiology - Resolved. - Suspected methadone overdose with reported response to narcan but patient denies even taking it the day of incident. - Possible 2/2 with viral symptoms. No meningial or symptoms of meningitis otherwise. Patient completely alert and oriented now. - WBC 14 with lactic acidosis that had resolved. UA with no evidence of infection. [facility] CT with no acute findings. - s/p 1 dose of ertapenem. f/u blood cultures. 2. Hx migraines 3. Hx hepatitis C - follows with Dr. Fajardo. 4. Hx substance abuse on methadone - Resume methadone to prevent withdraw. VS, I&O, 24H, Fishbone Vital Signs/I&O Vital Signs Date Time Temp Pulse Resp B/P (MAP) Pulse Ox O2 Delivery O2 Flow Rate FiO2 03/15/19 14:00 97.8 65 18 135/89 (104) 96 1.0 03/15/19 02:31 Room Air I&O- Last 24 Hours up to 6 AM 03/15/19 05:59 Intake Total 1000 ml Balance 1000 ml Laboratory Data 24H LABS Laboratory Tests 2 03/14/19 17:39: Immature Granulocyte % (Auto) 1.1, White Blood Count 13.8H, Red Blood Count 4.49 , Hemoglobin 13.2, Hematocrit 43.4, Mean Corpuscular Volume 96.7H, Mean Corpuscular Hemoglobin 29.4, Mean Corpuscular Hemoglobin Concent 30.4L, Red Cell Distribution Width 12.5, Platelet Count 219, Neutrophils (%) (Auto) 82.5H, Lymphocytes (%) (Auto) 10.7L, Monocytes (%) (Auto) 5.5H, Eosinophils (%) (Auto) 0.0, Basophils (%) (Auto) 0.2, Neutrophils # (Auto) 11.4H, Lymphocytes # (Auto) 1.5, Monocytes # (Auto) 0.8, Eosinophils # (Auto) 0.0, Basophils # (Auto) 0.0, Nucleated Red Blood Cells % (auto) 0.0, Anion Gap 14, Glomerular Filtration Rate > 60.0, Osmolality 297H, Lactic Acid Level 7.8*H, Calcium Level 9.2, Aspartate Amino Transf (AST/SGOT) 4L, Alanine Aminotransferase (ALT/SGPT) 17, Alkaline Phosphatase 104, Total Bilirubin 0.1L, Direct Bilirubin < 0.1, Total Creatine Kinase 40, Total Protein 7.6, Albumin 3.7, Albumin/Globulin Ratio 0.95L, Lipase 491H, Thyroid Stimulating Hormone (TSH) 0.272L, Human Chorionic Gonadotropin, Qual NEGATIVE, Salicylates Level 2.9L, Acetaminophen Level < 2.0L, Ethyl Alcohol Level < 0.003 03/14/19 21:21: Lactic Acid Level 2.7*H 03/14/19 21:32: Immature Granulocyte % (Auto) 0.7, White Blood Count 17.0H, Red Blood Count 4.02, Hemoglobin 12.2, Hematocrit 39.1, Mean Corpuscular Volume 97.3H, Mean Corpuscular Hemoglobin 30.3, Mean Corpuscular Hemoglobin Concent 31.2L, Red Cell Distribution Width 12.3, Platelet Count 224, Neutrophils (%) (Auto) 85.0H, Lymphocytes (%) (Auto) 8.5L, Monocytes (%) (Auto) 5.7H, Eosinophils (%) (Auto) 0.0, Basophils (%) (Auto) 0.1, Neutrophils # (Auto) 14.4H, Lymphocytes # (Auto) 1.4L, Monocytes # (Auto) 1.0H, Eosinophils # (Auto) 0.0, Basophils # (Auto) 0.0, Nucleated Red Blood Cells % (auto) 0.2H 03/14/19 22:25: Lactic Acid Followup at 4 Hours 3.7*H, Free Thyroxine 1.00 03/15/19 02:04: Lactic Acid Followup at 4 Hours 1.2 03/15/19 05:34: Nucleated Red Blood Cells % (auto) 0.0, Anion Gap 5L, Glomerular Filtration Rate > 60.0, Lactic Acid Level 1.2, Blood Urea Nitrogen 10, Creatinine 0.61, Sodium Level 142, Potassium Level 3.7, Chloride Level 107, Carbon Dioxide Level 30, Calcium Level 8.5, Aspartate Amino Transf (AST/SGOT) 10, Alanine Aminotransferase (ALT/SGPT) 13, Alkaline Phosphatase 80, Total Bilirubin 0.2#, Total Protein 6.1L, Albumin 2.9#L, Magnesium Level 1.8, Albumin/Globulin Ratio 0.91L 03/15/19 13:48: Urine Color STRAW, Urine Appearance CLEAR, Urine pH 8.0, Urine Specific [place] 1.004, Urine Protein NEGATIVE, Urine Glucose (UA) NEGATIVE, Urine Ketones NEGATIVE, Urine Blood NEGATIVE, Urine Nitrite NEGATIVE, Urine Bilirubin NEGATIVE, Urine Urobilinogen 0.2, Urine Leukocyte Esterase NEGATIVE, Urine WBC (Auto) 2, Urine RBC (Auto) 1, Urine Hyaline Casts (Auto) 0, Urine Bacteria (Auto) NEGATIVE, Urine Squamous Epithelial Cells 1, Urine Sperm (Auto) CBC/BMP Laboratory Tests 03/14/19 17:39 Red Blood Count 4.49, Mean Corpuscular Volume 96.7 H, Mean Corpuscular Hemoglobin 29.4, Mean Corpuscular Hemoglobin Concent 30.4 L, Red Cell Distribution Width 12.5, Neutrophils (%) (Auto) 82.5 H, Lymphocytes (%) (Auto) 10.7 L, Monocytes (%) (Auto) 5.5 H, Eosinophils (%) (Auto) 0.0, Basophils (%) (Auto) 0.2, Neutrophils # (Auto) 11.4 H, Lymphocytes # (Auto) 1.5, Monocytes # (Auto) 0.8, Eosinophils # (Auto) 0.0, Basophils # (Auto) 0.0 03/14/19 21:32 Red Blood Count 4.02, Mean Corpuscular Volume 97.3 H, Mean Corpuscular Hemoglobin 30.3, Mean Corpuscular Hemoglobin Concent 31.2 L, Red Cell Distribution Width 12.3, Neutrophils (%) (Auto) 85.0 H, Lymphocytes (%) (Auto) 8.5 L, Monocytes (%) (Auto) 5.7 H, Eosinophils (%) (Auto) 0.0, Basophils (%) (Auto) 0.1, Neutrophils # (Auto) 14.4 H, Lymphocytes # (Auto) 1.4 L, Monocytes # (Auto) 1.0 H, Eosinophils # (Auto) 0.0, Basophils # (Auto) 0.0 03/15/19 05:34 Red Blood Count 3.62 L, Mean Corpuscular Volume 96.7 H, Mean Corpuscular Hemoglobin 30.1, Mean Corpuscular Hemoglobin Concent 31.1 L, Red Cell Distribution Width 12.4, Calcium Level 8.5, Aspartate Amino Transf (AST/SGOT) 10, Alanine Aminotransferase (ALT/SGPT) 13, Alkaline Phosphatase 80, Total Bilirubin 0.2 #, Total Protein 6.1 L, Albumin 2.9 #L Microbiology Microbiology 03/14/19 Blood Culture, Received Pending 03/14/19 Blood Culture, Received Pending 03/14/19 Respiratory Virus Panel (PCR) ([facility]) - Final, Complete MARLIN ELKINS MD Mar 15, 2019 17:07
--- NOTE | 2019-03-15 17:38 | ECGEPIP ---
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
[2019-03-15 18:00] VITALS: BP 138/91
[2019-03-15] MEDS ORDERED: METHADONE 10 MG TAB (S0109) PO ONE (19:30)
[2019-03-15 22:00] VITALS: BP 130/90
[2019-03-16 06:18] LABS: HEMATOCRIT 37.6 % (36.0-47.0); HEMOGLOBIN 11.9 g/dl (12.0-15.5); MEAN CORPUSCULAR HEMOGLOBIN 28.8 pg (27.0-33.0); MEAN CORPUSCULAR HGB CONC 31.6 g/dl (32.0-36.5); PLATELET COUNT, AUTOMATED 227 10^3/uL (150-450); RED BLOOD COUNT 4.13 10^6/uL (4.00-5.40); WHITE BLOOD COUNT 10.9 10^3/uL (4.0-10.0)
[2019-03-16 06:40] LABS: BLOOD UREA NITROGEN 8 MG/DL (7-18); CALCIUM LEVEL 8.4 MG/DL (8.5-10.1); CARBON DIOXIDE LEVEL 27 MEQ/L (21-32); CHLORIDE LEVEL 111 MEQ/L (98-107); CREATININE FOR GFR 0.69 MG/DL (0.55-1.30); GLOMERULAR FILTRATION RATE > 60.0 (>60); GLUCOSE, FASTING 77 MG/DL (70-100); POTASSIUM SERUM 3.1 MEQ/L (3.5-5.1); SODIUM LEVEL 144 MEQ/L (136-145)
[2019-03-16] MEDS ORDERED: POTASSIUM CHLORIDE 10 MEQ SR TABLET PO ONE ×2 (08:00→10:00)
[2019-03-16] MEDS: SENNA 8.6 MG TAB (SENOKOT) PO SCH ×2 (08:09→20:40)
[2019-03-16] MEDS: HALOPERIDOL 0.5 MG TAB PO SCH (08:09)
[2019-03-16] MEDS: HEPARIN SOD (PORCINE) 5000 UNITS/ML VIAL SC SCH ×2 (08:09→20:40)
[2019-03-16] MEDS: risperiDONE 1 MG TAB PO SCH (08:09)
[2019-03-16] MEDS: VENLAFAXINE **XR** 75MG CAPSULE PO SCH (08:09)
[2019-03-16] MEDS: TOPIRAMATE (TopAMAX) 25 MG TAB PO SCH ×2 (08:10→20:40)
[2019-03-16] MEDS: CETIRIZINE (ZyrTEC) 10 MG TAB PO SCH (08:10)
[2019-03-16 08:26] VITALS: BP 132/89
[2019-03-16] MEDS ORDERED: METHADONE 10 MG TAB (S0109) PO SCH (09:00)
[2019-03-16 09:45] VITALS: BP 113/86
[2019-03-16 10:00] VITALS: BP 120/87
--- NOTE | 2019-03-16 13:33 | IPNPDOC ---
Date Seen The patient was seen on 03/16/19. Progress Note SUBJECTIVE: Patient was noted to be lethargic today and keep falling asleep. She is however, arousable and does answer questions appropriately. Reported that she couldn't sleep and didn't fall asleep until this morning. afebrile. WBC 14->10. OBJECTIVE PHYSICAL EXAMINATION: VITAL SIGNS: Please see below. General: No acute distress, sleepy but arousable Eyes: Normal sclera, EOMI, KHADIJAH HENT: Atraumatic, neck supple, moist mucous membranes Cardiovascular: Normal rate, normal rhythm. Pulmonary: Clear to auscultation b/l, no wheezing GI: Soft, nontender, nondistended Skin: Warm and dry Neuro: CN grossly intact. No focal deficits. Strengths equal b/l. Psych: oriented x 3 LABORATORY DATA, IMAGING STUDIES, MICROBIOLOGY: Please see below. DVT prophylaxis ordered?: HSQ and SCD ASSESSMENT AND PLAN: 1. Acute encephalopathy of unclear etiology - Resolved. - Suspected methadone overdose with reported response to narcan but patient denies even taking it the day of incident. - Possible 2/2 with viral symptoms. No meningial or symptoms of meningitis otherwise. Patient completely alert and oriented now. - WBC 14 with lactic acidosis that had resolved. UA with no evidence of infection. [place] CT with no acute findings. - s/p 1 dose of ertapenem. f/u blood cultures, negative to date. No clear source of infection, would hold off on further antibiotics at this time. 2. Hx migraines 3. Hx hepatitis C - follows with Dr. Fajardo. 4. Hx substance abuse on methadone - Reported daily dose of 160 mg daily, unable to verify over the weekend. - Was given 120 mg sunday and sunday but was very lethargic, despite being on a lower dose than reported at home. 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 Unsure if timing was a factor. - Need to verify tomorrow with clinic before re-initiating. VS, I&O, 24H, Fishbone Vital Signs/I&O Vital Signs Date Time Temp Pulse Resp B/P (MAP) Pulse Ox O2 Delivery O2 Flow Rate FiO2 03/16/19 10:00 97.9 98 12 120/87 (98) 93 2.0 03/15/19 02:31 Room Air I&O- Last 24 Hours up to 6 AM 03/16/19 06:00 Intake Total 5020 ml Output Total 7500 ml Balance -2480 ml Laboratory Data 24H LABS Laboratory Tests 2 03/15/19 13:48: Urine Color STRAW, Urine Appearance CLEAR, Urine pH 8.0, Urine Specific [place] 1.004, Urine Protein NEGATIVE, Urine Glucose (UA) NEGATIVE, Urine Ketones NEGATIVE, Urine Blood NEGATIVE, Urine Nitrite NEGATIVE, Urine Bilirubin NEGATIVE, Urine Urobilinogen 0.2, Urine Leukocyte Esterase NEGATIVE, Urine WBC (Auto) 2, Urine RBC (Auto) 1, Urine Hyaline Casts (Auto) 0, Urine Bacteria (Auto) NEGATIVE, Urine Squamous Epithelial Cells 1, Urine Sperm (Auto) 03/16/19 05:38: Nucleated Red Blood Cells % (auto) 0.0, Anion Gap 6L, Glomerular Filtration Rate > 60.0, Blood Urea Nitrogen 8, Creatinine 0.69, Sodium Level 144, Potassium Level 3.1L, Chloride Level 111H, Carbon Dioxide Level 27, Calcium Level 8.4L CBC/BMP Laboratory Tests 03/16/19 05:38 Red Blood Count 4.13, Mean Corpuscular Volume 91.0, Mean Corpuscular Hemoglobin 28.8, Mean Corpuscular Hemoglobin Concent 31.6 L, Red Cell Distribution Width 12.4, Calcium Level 8.4 L Microbiology Microbiology 03/14/19 Blood Culture - Preliminary, Resulted No growth after 24 hours . All specim... 03/14/19 Blood Culture - Preliminary, Resulted No growth after 24 hours . All specim... 03/14/19 Respiratory Virus Panel (PCR) ([facility]) - Final, Complete MARLIN ELKINS MD Mar 16, 2019 13:33
[2019-03-16 14:00] VITALS: BP 126/92
[2019-03-16 18:00] VITALS: BP 138/97
[2019-03-16 22:00] VITALS: BP 127/78
[2019-03-17 02:00] VITALS: BP 125/80
[2019-03-17 06:00] VITALS: BP 126/81
[2019-03-17 06:31] LABS: HEMATOCRIT 40.7 % (36.0-47.0); HEMOGLOBIN 13.5 g/dl (12.0-15.5); MEAN CORPUSCULAR HEMOGLOBIN 29.9 pg (27.0-33.0); MEAN CORPUSCULAR HGB CONC 33.2 g/dl (32.0-36.5); PLATELET COUNT, AUTOMATED 225 10^3/uL (150-450); RED BLOOD COUNT 4.52 10^6/uL (4.00-5.40); WHITE BLOOD COUNT 8.7 10^3/uL (4.0-10.0)
[2019-03-17 06:50] LABS: BLOOD UREA NITROGEN 10 MG/DL (7-18); CARBON DIOXIDE LEVEL 23 MEQ/L (21-32); CHLORIDE LEVEL 109 MEQ/L (98-107); CREATININE FOR GFR 0.74 MG/DL (0.55-1.30); GLOMERULAR FILTRATION RATE > 60.0 (>60); GLUCOSE, FASTING 80 MG/DL (70-100); POTASSIUM SERUM 3.6 MEQ/L (3.5-5.1); SODIUM LEVEL 140 MEQ/L (136-145)
[2019-03-17] MEDS: VENLAFAXINE **XR** 75MG CAPSULE PO SCH (09:09)
[2019-03-17] MEDS: HALOPERIDOL 0.5 MG TAB PO SCH (09:09)
[2019-03-17] MEDS: TOPIRAMATE (TopAMAX) 25 MG TAB PO SCH ×2 (09:09→20:06)
[2019-03-17] MEDS: risperiDONE 1 MG TAB PO SCH (09:09)
[2019-03-17] MEDS: SENNA 8.6 MG TAB (SENOKOT) PO SCH ×2 (09:09→20:06)
[2019-03-17] MEDS: CETIRIZINE (ZyrTEC) 10 MG TAB PO SCH (09:09)
[2019-03-17] MEDS: HEPARIN SOD (PORCINE) 5000 UNITS/ML VIAL SC SCH ×2 (09:10→20:06)
[2019-03-17 10:00] VITALS: BP 131/95
[2019-03-17] MEDS ORDERED: METHADONE 10 MG TAB (S0109) PO ONE (12:00)
[2019-03-17 14:00] VITALS: BP 114/77
[2019-03-17 18:00] VITALS: BP 107/76
--- NOTE | 2019-03-17 18:54 | IPNPDOC ---
Text Note Date of Service The patient was seen on 03/17/19. NOTE Subjective: Patient is not confused today, appropriately answered the questions. Patient denies fever, chills, nausea, vomiting, diarrhea or dysuria OBJECTIVE PHYSICAL EXAMINATION: VITAL SIGNS: Please see below. General: No acute distress, sleepy but arousable Eyes: Normal sclera, EOMI, KHADIJAH HENT: Atraumatic, neck supple, moist mucous membranes Cardiovascular: Normal rate, normal rhythm. Pulmonary: Clear to auscultation b/l, no wheezing GI: Soft, nontender, nondistended Skin: Warm and dry Neuro: CN grossly intact. No focal deficits. Strengths equal b/l. Psych: oriented x 3 ASSESSMENT AND PLAN: Patient's 38 years old female with past medical history of polysubstance abuse currently on methadone therapy and presented hospital with altered mental status. 1. Acute encephalopathy of unclear etiology - Resolved. Most likely patient developed metabolic encephalopathy secondary to possible methadone overdose in top of possible viral infection - Suspected methadone overdose with reported response to narcan but patient denies even taking it the day of incident. - Leukocytosis resolved, patient afebrile. 2. Hx migraines 3. Hx hepatitis C - follows with Dr. Fajardo. 4. Hx substance abuse on methadone - Reported daily dose of 160 mg daily, dose was verified, I resumed methadone today at dose 120 Anticipated discharge tomorrow VS,Michael, I+O VS, Michael, I+O Laboratory Tests 03/17/19 05:44 Red Blood Count 4.52, Mean Corpuscular Volume 90.0, Mean Corpuscular Hemoglobin 29.9, Mean Corpuscular Hemoglobin Concent 33.2, Red Cell Distribution Width 12.3 03/17/19 05:45 Calcium Level 9.0 Vital Signs Date Time Temp Pulse Resp B/P (MAP) Pulse Ox O2 Delivery O2 Flow Rate FiO2 03/17/19 18:00 98.3 83 18 107/76 (86) 95 03/16/19 18:00 2.0 03/15/19 02:31 Room Air I&O- Last 24 Hours up to 6 AM 03/17/19 05:59 Intake Total 1695 ml Output Total 1900 ml Balance -205 ml BRENDA MADRIGAL DO Mar 17, 2019 18:54
[2019-03-17] MEDS ORDERED: POTASSIUM CHLORIDE 10 MEQ SR TABLET PO ONE (19:00)
[2019-03-17 22:00] VITALS: BP 111/81
[2019-03-18 02:00] VITALS: BP 102/53
[2019-03-18 06:00] VITALS: BP 105/61
[2019-03-18 06:18] LABS: BASO % 0.4 % (0.0-1.0); EOS # 0.3 10^3/uL (0.0-0.5); HEMATOCRIT 41.4 % (36.0-47.0); HEMOGLOBIN 13.6 g/dl (12.0-15.5); LYMPH # 3.1 10^3/uL (1.5-5.0); LYMPH % 37.1 % (24.0-44.0); MEAN CORPUSCULAR HEMOGLOBIN 29.3 pg (27.0-33.0); MEAN CORPUSCULAR HGB CONC 32.9 g/dl (32.0-36.5); MEAN CORPUSCULAR VOLUME 89.2 fl (80.0-96.0); MONO # 0.8 10^3/uL (0.0-0.8); MONO % 9.3 % (0.0-5.0); NEUTROPHILS # 4.1 10^3/uL (1.5-8.5); NEUTROPHILS % 49.6 % (36.0-66.0); PLATELET COUNT, AUTOMATED 249 10^3/uL (150-450); RED BLOOD COUNT 4.64 10^6/uL (4.00-5.40); WHITE BLOOD COUNT 8.2 10^3/uL (4.0-10.0)
[2019-03-18 06:48] LABS: BLOOD UREA NITROGEN 13 MG/DL (7-18); CALCIUM LEVEL 9.1 MG/DL (8.5-10.1); CARBON DIOXIDE LEVEL 25 MEQ/L (21-32); CHLORIDE LEVEL 107 MEQ/L (98-107); CREATININE FOR GFR 0.89 MG/DL (0.55-1.30); GLOMERULAR FILTRATION RATE > 60.0 (>60); GLUCOSE, FASTING 82 MG/DL (70-100); SODIUM LEVEL 141 MEQ/L (136-145)
[2019-03-18] MEDS: HEPARIN SOD (PORCINE) 5000 UNITS/ML VIAL SC SCH (08:08)
[2019-03-18] MEDS: TOPIRAMATE (TopAMAX) 25 MG TAB PO SCH (08:08)
[2019-03-18] MEDS: HALOPERIDOL 0.5 MG TAB PO SCH (08:09)
[2019-03-18] MEDS: SENNA 8.6 MG TAB (SENOKOT) PO SCH (08:09)
[2019-03-18] MEDS: risperiDONE 1 MG TAB PO SCH (08:09)
[2019-03-18] MEDS: VENLAFAXINE **XR** 75MG CAPSULE PO SCH (08:09)
[2019-03-18] MEDS: CETIRIZINE (ZyrTEC) 10 MG TAB PO SCH (08:09)
[2019-03-18 10:00] VITALS: BP 107/76
[2019-03-18 14:00] VITALS: BP 119/84
[2019-03-18] MEDS ORDERED: METHADONE 10 MG TAB (S0109) PO ONE (15:45)
--- NOTE | 2019-03-18 21:48 | DS.PDOC ---
Discharge Summary General Date of Admission Mar 14, 2019 at 21:55 Date of Discharge 03/18/19 Attending Physician: BRENDA MADRIGAL DO Discharge Summary PROCEDURES PERFORMED DURING STAY: None ADMITTING DIAGNOSES: Acute encephalopathy of unclear etiology Hx migraines Hx hepatitis C Hx substance abuse on methadone DISCHARGE DIAGNOSES: Acute encephalopathy of unclear etiology Hx migraines Hx hepatitis C Hx substance abuse on methadone COMPLICATIONS/CHIEF COMPLAINT: Altered Mental Status. HISTORY OF PRESENT ILLNESS: Ms. Ni is a 38 years old woman on methadone maintenance program. She did not show up at the program today, and police was sent to her home. She was found on bed unconscious, and brought to ER. Pt reports feeling sick with "flu like" symptoms and migraine for the past two days. She says she was napping on her bed and remembers police showing up at her home. She denies overdosing on any medication or using street drug; denies being depressed or suicidal. In the ER, she was only responsive to sternal rub. She was given two doses of Narcan with response. By the time I saw her in Er, she was fully alert and oriented. Pt was hemodynamically stable; had a fever of 101.3 with flushed facial skin,. WBC 17K, lactate 7.8 (down to 3.7 after IV fluid). Pt denies neck pain, photophobia, diarrhea, dysuria, chest pain or SOB. Extensive CT and CXR are unremarkable. HOSPITAL COURSE: During hospital stay the following issues were addressed 1. Acute encephalopathy of unclear etiology - Resolved. Most likely patient developed metabolic encephalopathy secondary to possible methadone overdose in top of possible viral infection - Suspected methadone overdose with reported response to narcan but patient denies even taking it the day of incident. - Leukocytosis resolved, patient afebrile. 2. Hx migraines 3. Hx hepatitis C - follows with Dr. Fajardo. 4. Hx substance abuse on methadone - Reported daily dose of 160 mg daily, dose was verified, I resumed methadone at dose 120 mg DISCHARGE MEDICATIONS: Please see below. ALLERGIES: Please see below. PHYSICAL EXAMINATION ON DISCHARGE: VITAL SIGNS: Please see below. General: No acute distress, sleepy but arousable Eyes: Normal sclera, EOMI, KHADIJAH HENT: Atraumatic, neck supple, moist mucous membranes Cardiovascular: Normal rate, normal rhythm. Pulmonary: Clear to auscultation b/l, no wheezing GI: Soft, nontender, nondistended Skin: Warm and dry Neuro: CN grossly intact. No focal deficits. Strengths equal b/l. Psych: oriented x 3 LABORATORY DATA: Please see below. IMAGING: PROCEDURE INFORMATION: Exam: CT Chest With Contrast Exam date and time: 03/14/2019 6:18 PM Clinical history: 38 years old, female; Pain; Other: All over; Additional info: Altered mental status TECHNIQUE: Imaging protocol: Computed tomography of the chest with intravenous contrast. Radiation optimization: All CT scans at this facility use at least one of these dose optimization techniques: automated exposure control; mA and/or kV adjustment per patient size (includes targeted exams where dose is matched to clinical indication); or iterative reconstruction. Contrast material: [id number]; Contrast volume: 100 ml; Contrast route: IV; COMPARISON: CR PORTABLE CHEST X-RAY 03/14/2019 4:50 PM FINDINGS: Lungs: Calcified granuloma right pulmonary apex. Lungs otherwise clear. Pleural space: Unremarkable. No pneumothorax. No pleural effusion. Heart: Unremarkable. No cardiomegaly. No pericardial effusion. Aorta: Unremarkable. No aortic aneurysm. Lymph nodes: Unremarkable. No enlarged lymph nodes. Bones/joints: Unremarkable. No acute fracture. Soft tissues: Unremarkable. IMPRESSION: No acute findings. Electronically signed by: Oz Jon On 03/14/2019 18:43:21 PM PROCEDURE INFORMATION: Exam: CT Abdomen and Pelvis With Contrast Exam date and time: 03/14/2019 6:18 PM Clinical history: 38 years old, female; Abdominal pain; Generalized; Additional info: Altered mental status TECHNIQUE: Imaging protocol: Computed tomography of the abdomen and pelvis with intravenous contrast. Radiation optimization: All CT scans at this facility use at least one of these dose optimization techniques: automated exposure control; mA and/or kV adjustment per patient size (includes targeted exams where dose is matched to clinical indication); or iterative reconstruction. Contrast material: ISOVUE 370; Contrast volume: 100 ml; Contrast route: IV; COMPARISON: No relevant prior studies available. FINDINGS: Liver: There is a diffuse decrease in hepatic parenchymal density, consistent with fatty infiltration. Gallbladder and bile ducts: Normal. No calcified stones. No ductal dilation. Pancreas: Normal. No ductal dilation. Spleen: Normal. No splenomegaly. Adrenals: Normal. No mass. Kidneys and ureters: Normal. No hydronephrosis. Stomach and bowel: There is increased feces throughout the colon consistent with constipation. Appendix: No evidence of appendicitis. Intraperitoneal space: Unremarkable. No free air. No significant fluid collection. Vasculature: Unremarkable. No abdominal aortic aneurysm. Lymph nodes: Unremarkable. No enlarged lymph nodes. Bladder: Unremarkable as visualized. Reproductive: Unremarkable as visualized. Bones/joints: Unremarkable. No acute fracture. Soft tissues: Unremarkable. IMPRESSION: 1. There is increased feces throughout the colon consistent with constipation. 2. There is a diffuse decrease in hepatic parenchymal density, consistent with fatty infiltration. Electronically signed by: Oz Jon On 03/14/2019 18:47:23 PM PROCEDURE INFORMATION: Exam: CT Head Without Contrast Exam date and time: 03/14/2019 6:18 PM Clinical history: 38 years old, female; Altered mental status/memory loss; Confusion or disorientation TECHNIQUE: Imaging protocol: Computed tomography of the head without contrast. Radiation optimization: All CT scans at this facility use at least one of these dose optimization techniques: automated exposure control; mA and/or kV adjustment per patient size (includes targeted exams where dose is matched to clinical indication); or iterative reconstruction. COMPARISON: No relevant prior studies available. FINDINGS: Brain: Normal. No hemorrhage. Unremarkable white matter. No mass effect. Ventricles: Normal. No ventriculomegaly. Bones/joints: Unremarkable. No acute fracture. Sinuses: Visualized sinuses are unremarkable. No fluid levels. Mastoid air cells: Visualized mastoid air cells are well aerated. Soft tissues: Unremarkable. IMPRESSION: No acute intracranial abnormality. Electronically signed by: Oz Jon On 03/14/2019 18:37:00 PM PROGNOSIS: Favorable ACTIVITY: As tolerated DIET: Regular DISCHARGE PLAN: Follow-up with methadone clinic and PCP DISPOSITION: 01 Home, Self-Care. DISCHARGE CONDITION: Stable TIME SPENT ON DISCHARGE: Greater than 25 minutes. Vital Signs/I&Os Vital Signs Date Time Temp Pulse Resp B/P (MAP) Pulse Ox O2 Delivery O2 Flow Rate FiO2 03/18/19 14:00 98.2 106 17 119/84 (96) 95 03/16/19 18:00 2.0 03/15/19 02:31 Room Air I&O- Last 24 Hours up to 6 AM 03/18/19 06:00 Intake Total 1730 ml Output Total 2200 ml Balance -470 ml Laboratory Data Labs 24H Laboratory Tests 2 03/18/19 05:36: Immature Granulocyte % (Auto) 0.6, White Blood Count 8.2, Red Blood Count 4.64, Hemoglobin 13.6, Hematocrit 41.4, Mean Corpuscular Volume 89.2, Mean Corpuscular Hemoglobin 29.3, Mean Corpuscular Hemoglobin Concent 32.9, Red Cell Distribution Width 12.8, Platelet Count 249, Neutrophils (%) (Auto) 49.6, Lymphocytes (%) (Auto) 37.1, Monocytes (%) (Auto) 9.3H, Eosinophils (%) (Auto) 3.0, Basophils (%) (Auto) 0.4, Neutrophils # (Auto) 4.1, Lymphocytes # (Auto) 3.1, Monocytes # (Auto) 0.8, Eosinophils # (Auto) 0.3, Basophils # (Auto) 0.0, Nucleated Red Blood Cells % (auto) 0.0, Anion Gap 9, Glomerular Filtration Rate > 60.0, Blood Urea Nitrogen 13, Creatinine 0.89, Sodium Level 141, Potassium Level 4.0, Chloride Level 107, Carbon Dioxide Level 25, Calcium Level 9.1 CBC/BMP Laboratory Tests 03/18/19 05:36 Red Blood Count 4.64, Mean Corpuscular Volume 89.2, Mean Corpuscular Hemoglobin 29.3, Mean Corpuscular Hemoglobin Concent 32.9, Red Cell Distribution Width 12.8, Neutrophils (%) (Auto) 49.6, Lymphocytes (%) (Auto) 37.1, Monocytes (%) (Auto) 9.3 H, Eosinophils (%) (Auto) 3.0, Basophils (%) (Auto) 0.4, Neutrophils # (Auto) 4.1, Lymphocytes # (Auto) 3.1, Monocytes # (Auto) 0.8, Eosinophils # (Auto) 0.3, Basophils # (Auto) 0.0, Calcium Level 9.1 Microbiology Microbiology 03/14/19 Blood Culture - Preliminary, Resulted No Growth after 72 hours. All specime... 03/14/19 Blood Culture - Preliminary, Resulted No Growth after 72 hours. All specime... 03/14/19 Respiratory Virus Panel (PCR) ([facility]) - Final, Complete Discharge Medications Scheduled Cetirizine HCl (Cetirizine HCl) 10 Mg Tab, 10 MG PO DAILY, (Reported) Gabapentin (Gabapentin) 300 Mg Cap, 300 MG PO TID, (Reported) Glecaprevir/Pibrentasvir (Mavyret 100-40 mg Tablet) 1 Tab Tab, 3 TAB PO DAILY, (Reported) PATIENT HAS THIS RX FILLED AT [facility] IN [place] TH[place]OUGH [facility]. SHE HAS THE MEDICATION AT HER HOUSE BUT HAS NO ONE TO PICK IT UP FOR USE FOR THIS ADMISSION Haloperidol (Haloperidol) 0.5 Mg Tablet, 0.5 MG PO DAILY, (Reported) Metformin HCl (Metformin HCl ER) 750 Mg Tab.er.24h, 750 MG PO DAILY, (Reported) Methadone HCl (Methadone HCl) 10 Mg/Ml Con, 115 MG PO DAILY, (Reported) Multivitamin (Multi-Vitamin Daily) 1 Each Tablet, 1 TAB PO DAILY, (Reported) Risperidone (Risperidone) 1 Mg Tablet, 1 MG PO QAM, (Reported) Sennosides (Senna Lax) 8.6 Mg Tablet, 8.6 MG PO BID, (Reported) Topiramate (Topiramate) 50 Mg Tablet, 50 MG PO BID, (Reported) Trazodone HCl (Trazodone HCl) 150 Mg Tab, 150 MG PO QHS, (Reported) Venlafaxine HCl (Venlafaxine HCl ER) 150 Mg Cap, 150 MG PO DAILY, (Reported) TAKES WITH 75MG FOR 225MG TOTAL Venlafaxine HCl (Venlafaxine HCl ER) 75 Mg Capcr, 75 MG PO DAILY, (Reported) TAKES WITH 150MG FOR 225MG TOTAL Scheduled PRN Albuterol Sulfate (Ventolin Hfa) 108 Mcg/Act Aer, 1 PUFF INH QID PRN for SHORTNESS OF BREATH, (Reported) Aspirin/Acetaminophen/Caffeine (Excedrin Migraine Caplet) 1 Each Tablet, 2 TAB- CAP PO BID PRN for HEADACHE, (Reported) Docusate Sodium (Dok) 100 Mg Tab, 200 MG PO DAILY PRN for CONSTIPATION, (Reported) Methadone HCl (Methadone HCl) 10 Mg/Ml Con, 3.5 ML PO DAILY PRN for PAIN, (Reported) Ondansetron (Ondansetron Odt) 4 Mg Tab.rapdis, 4 MG PO Q6H PRN for NAUSEA OR VOMITING, (Reported) Polyethylene Glycol 8000 (Polyethylene Glycol) 500 Gm Powder, 17 GM PO DAILY PRN for CONSTIPATION, (Reported) Sumatriptan Succinate (Imitrex) 100 Mg Tab, 100 MG PO DAILY PRN for MIGRAINE, (Reported) MAY REPEAT AFTER 2 HOURS IF SYMPTOMS PERSIST Miscellaneous Medications [Comments] , (Reported) MED REC COMPLETED WITH EXT. MED HISTORY. Allergies Coded Allergies: cephalexin (Verified Allergy, Intermediate, SHOCK, 03/14/19) BRENDA MADRIGAL DO Mar 18, 2019 21:48
== END 2019-03-18 16:15 | disposition home or self-care (01) | DRG 812 ==
LOC: M ED 21:11 → M ED INP 21:55 → M MSPAV 03-15 02:49
PROVIDERS: ADMIT Internal Medicine; ATTEND Internal Medicine
DX: T40.3X4A Poisoning by methadone, undetermined, initial encounter (principal); G93.40 Encephalopathy, unspecified; G43.909 Migraine, unspecified, not intractable, without status migrainosus; B18.2 Chronic viral hepatitis C; D72.829 Elevated white blood cell count, unspecified; K59.00 Constipation, unspecified; Z79.899 Other long term (current) drug therapy; Z88.8 Allergy status to other drugs, medicaments and biological substances; F17.200 Nicotine dependence, unspecified, uncomplicated

== ENCOUNTER → 2019-03-24 | Outpatient (CLI) | payer OTHER ==
[~2019-03-24] MED LIST changes: +COMMENTS; +EXCETAB33 PO; +GNP8.6TA PO; +HALO0.5H PO; +METF750T36 PO; +MULTTAB86 PO; +ONDA4TAB6 PO; +POLY1GRA PO; +RISP1TAB3 PO; +TOPI50TA9 PO
--- NOTE | 2019-03-26 00:44 | ECWPNPC ---
PATIENT NAME: LOREN WHITE : 1980 GENDER: FEMALE VISIT DATE: 03/24/2019 DISCHARGE DATE: 03/24/19 1611 VISIT LOCKED DATE TIME: PHYSICIAN: JANNA HERNANDEZ RESOURCE: JANNA HERNANDEZ REASON FOR APPOINTMENT 1. CHRONIC PAIN HISTORY OF PRESENT ILLNESS HISTORY OF PRESENT ILLNESS: PAIN THE PATIENT DESCRIBES THE PAIN... 38-YEAR-OLD FEMALE IN FOR CHRONIC PAIN FOLLOW-UP SHE RATES HER PAIN AT A 5 OUT OF 6 AND DESCRIBES IT ACHING, SHARP, AND SHOOTING. SHE HAS REQUESTED SOMETHING OTHER THAN THE IBUPROFEN FOR PAIN. FALL RISK SCREENING: SCREENING :NO FALLS REPORTED IN THE LAST YEAR CURRENT MEDICATIONS TAKING EFFEXOR XR 150 MG CAPSULE EXTENDED RELEASE 24 HOUR 1 CAPSULE WITH FOOD ORALLY ONCE A DAY TAKING EFFEXOR XR 75 MG CAPSULE EXTENDED RELEASE 24 HOUR 1 CAPSULE WITH FOOD ORALLY ONCE A DAY TAKING TRAZODONE HCL 150 MG TABLET 1 TABLET AT BEDTIME NEEDED ORALLY ONCE A DAY TAKING TOPAMAX 50 MG TABLET 1 TABLET ORALLY TWICE A DAY TAKING METHADONE HCL 10 MG/5ML SOLUTION 155 MG LIQUID ORALLY DAILY TAKING GABAPENTIN 300 MG CAPSULE 1 CAPSULE ORALLY TID TAKING CETIRIZINE HCL 10 MG TABLET 1 TABLET ORALLY ONCE A DAY TAKING METFORMIN HCL ER 750 MG TABLET EXTENDED RELEASE 24 HOUR 1 TABLET WITH EVENING MEAL ORALLY ONCE A DAY TAKING SUMATRIPTAN SUCCINATE 100 MG TABLET 1 TABLET NEEDED ORALLY TWICE A DAY TAKING VENTOLIN HFA 108 (90 BASE) MCG/ACT AEROSOL SOLUTION 2 PUFFS NEEDED INHALATION EVERY 6 HRS TAKING IBUPROFEN 800 MG TABLET 1 TABLET WITH FOOD OR MILK NEEDED ORALLY THREE TIMES A DAY TAKING EXCEDRIN EXTRA STRENGTH 250-250-65 MG TABLET 2 TABLETS NEEDED ORALLY ONCE A DAY TAKING MULTI COMPLETE - CAPSULE 1 CAP ORALLY DAILY TAKING RISPERIDONE 0.5 MG TABLET 1 TABLET ORALLY BID TAKING IMITREX 50 MG TABLET 2 TABS ORALLY NEEDED TAKING COLACE 100 MG CAPSULE 1 CAPSULE NEEDED ORALLY ONCE A DAY NOT-TAKING MIRALAX - PACKET 1 PACKET MIXED WITH 8 OUNCES OF FLUID ORALLY ONCE A DAY NOT-TAKING MAVYRET 100-40 MG TABLET 3 TABLETS ORALLY ONCE A DAY MEDICATION LIST REVIEWED AND RECONCILED WITH THE PATIENT PAST MEDICAL HISTORY CHRONIC HEPATITIS C HEPATITIS C VIRAL LOAD 284,000 AST 35 ALT 80 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 PATIENT WAS ADOPTED, DOES NOT KNOW FAMILY HISTORY.DAUGHTER - AUTISM, BI-POLAR. SOCIAL HISTORY GENERAL: TOBACCO USE ARE YOU A:CURRENT SMOKER ARE YOU INTERESTED IN QUITTING?NOT READY TO QUIT COUNSELED THE PATIENT ON SMOKING EFFECTS, EDUCATION [id number]/30/2019 HOW MANY CIGARETTES A DAY DO YOU SMOKE?6-10 HOW SOON AFTER YOU WAKE UP DO YOU SMOKE YOUR FIRST CIGARETTE?6-30 MIN HOW OFTEN DO YOU SMOKE CIGARETTES?EVERY DAY PATIENT COUNSELED ON THE DANGERS OF TOBACCO USE AND URGED TO QUIT:03/24/2019 SMOKING CESSATION INFORMATION GIVEN01/01/2018 HIV / HEP-C SCREENING HIV TEST OFFERED TO PATIENT:YES DATE OFFERED:08/06/2017 TEST ACCEPTED:NO HEP-C TEST OFFERED TO PATIENT:YES STATES TEST WAS NOT POSITIVE REASON:OTHER (DOCUMENT IN NOTE) PER PT SCREENED NEGATIVE OTHERS AT HOME: NONE. HOUSING: RENTS APARTMENT. EDUCATION LEVEL OF EDUCATION:FINISHED HIGH SCHOOL DIET: REGULAR. LANGUAGE LANGUAGES SPOKEN:GREEK DOMESTIC VIOLENCE DO YOU FEEL SAFE IN YOUR ENVIRONMENT?YES RECREATIONAL DRUG USE DRUG USE?YES ADDICTION OPIATES IN PAST, HAS BEEN SOBER FOR 16 MONTHS EXERCISE: NONE. 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?NO PAIN CLINIC PFS, CLERGY, PUBLIC HEALTH REFERRALS HAS THE PATIENT BEEN EDUCATED REGARDING HIS/HER PLAN OF CARE?YES HAS THE PATIENT BEEN EDUCATED REGARDING PAIN, THE RISK FOR PAIN, THE IMPORTANCE OF EFFECTIVE PAIN MANAGEMENT, AND THE PAIN ASSESSMENT PROCESS?YES LATEX QUESTIONNAIRE LATEX ALLERGY : HAVE YOU EVER DEVELOPED ANY TYPE OF REACTION AFTER HANDLING LATEX PRODUCTS SUCH RUBBER GLOVES, CONDOMS, DIAPHRAGMS, BALLOONS, SOCKS, OR UNDERWEAR?NO LATEX ALLERGY : HAVE YOU EVER DEVELOPED ANY TYPE OF REACTION DURING OR AFTER DENTAL APPOINTMENT, VAGINAL/RECTAL EXAMINATION, SURGICAL PROCEDURE, OR ANY OTHER EXPOSURE?NO DATE ASKED : 11/19/2018 LATEX RISK : HAVE YOU EVER HAD ANY DIFFICULTY BREATHING OR HIVES AFTER EATING OR HANDLING ANY FRUITS, OR VEGETABLES; SUCH KIWI, BANANAS, STONE FRUITS, OR CHESTNUTSNO LATEX RISK : DO YOU HAVE A PREVIOUS PERSONAL HISTORY OF MORE THAN NINE SURGERIES, SPINA BIFIDA, OR REPEATED CATHERIZATIONS? NO LATEX RISK : ARE YOU FREQUENTLY EXPOSED TO LATEX PRODUCTS IN YOUR OCCUPATION?NO CAFFEINE CAFFEINE USE?YES ADVANCE DIRECTIVE ADVANCE DIRECTIVE DISCUSSED WITH PATIENT:YES 03/24/19 PT DOES NOT HAVE ANY ADVANCED DIRECTIVES AND SHE DECLINES INFORMATION ON HCP AT THIS TIME. AD SIKHISM [id number] MOSQUE MARITAL STATUS: BUT, AND SINGLE. ALCOHOL SCREENING DID YOU HAVE A DRINK CONTAINING ALCOHOL IN THE PAST YEAR?NO POINTS0 INTERPRETATIONNEGATIVE OCCUPATION: UNEMPLOYED HAS BEEN (INCARCERATED)6MONTHS. SEXUAL HX HAD SEX IN THE LAST 12 MONTHS (VAGINAL, ORAL, OR ANAL)?NO LMP:07/2017 HAVE YOU EVER HAD AN STD?NO REVIEWED WITH PATIENT 08/30/18 1107 JSREVIEWED WITH PT 01/21/19 1452 NLJ. HOSPITALIZATION/MAJOR DIAGNOSTIC PROCEDURE CHILD MENTAL HEALTH "DYING" AND COMING BACK TO LIFE-COULDN'T FIGURE OUT WHY 03/14/2019 REVIEW OF SYSTEMS REVIEWED BY: PROVIDER: RINA CASTILLO . CONSTITUTIONAL: ANY CHANGE IN YOUR MEDICAL CONDITION? YES, WAS HOSPITALIZED 03/14-03/18/19 STATED SHE AND CAME BACK TO LIFE. THEY WERE UNABLE TO DETERMINE WHAT HAPPENED. . CHILLS NO . FEVER NO . INFECTION: DO YOU HAVE NEW INFECTIONS? NO . DO YOU HAVE HISTORY OF MRSA? YES APPROX 2017 LEFT HIP . MUSCULOSKELETAL: ANY NEW PATTERNS OF PAIN OR NUMBNESS? NO . GASTROENTEROLOGY: ANY NEW CHANGE IN BOWEL CONTROL? NO . GENITOURINARY: ANY NEW CHANGE IN BLADDER CONTROL? NO . IS THERE A CHANCE YOU COULD BE ? NO . HEMATOLOGY/LYMPH: DO YOU TAKE ANY BLOOD THINNERS? (FOR EXAMPLE- COUMADIN, PLAVIX, AGGRENOX, PLATEL, PRADAXA, OR XARELTO) NO . WHEN WAS YOUR LAST DOSE? DATE: TIME: . NEUROLOGY: HAVE YOU FALLEN IN THE PAST 12 MONTHS? YES, ONCE, APPROX. 2 MONTHS WAS RUNNING AND FELL-SCRAPED LEFT KNEE . ANY NEW EXTREMITY NUMBNESS OR WEAKNESS? YES,RIGHT ARM AND HAND NUMB AND WEAK X 6 MONTHS-SEES A NEUROLOGIST . CARDIOLOGY: DO YOU HAVE A PACEMAKER OR DEFIBRILLATOR? NO . RESPIRATORY: HAVE YOU BEEN SICK IN THE PAST WEEK? YES . FEVER YES,03/14 . FLU LIKE SYMPTOMS? NO . COUGH NO . INTEGUMENTARY: DO YOU HAVE ANY RASHES OR OPEN SORES? YES, MULTIPLE CAT SCRATCHES . ALLERGIC/IMMUNO: ARE YOU ALLERGIC TO IV DYE? NO . ANY NEW ALLERGIES? NO . PSYCHIATRIC: DO YOU HAVE THOUGHTS OF HURTING YOURSELF OR SOMEONE ELSE? NO . ARE YOU ABUSED, NEGLECTED, OR IN AN UNSAFE ENVIRONMENT? NO . ENDOCRINOLOGY: ARE YOU DIABETIC? NO . OTHER: DO YOU NEED ANY PRESCRIPTIONS? NO . IF YES, PLEASE LIST: ____ . ANY NEW PROBLEMS WITH YOUR MEDICATIONS? NO . WHEN DID YOU LAST EAT? ____ . WHEN DID YOU LAST DRINK? ____ . WHAT DID YOU LAST DRINK? ____ . NAME OF PERSON DRIVING YOU HOME? ____ . DO YOU HAVE ANY OTHER QUESTIONS OR CONCERNS YES, WOULD LIKE SOMETHING FOR HER BACK PAIN PT STATES SHE HAD FLU SHOT APPROX 2 WEEKS AGO . VITAL SIGNS WT 182.2 LBS, HT 64 IN, BMI 31.27 INDEX, BP 112/71 MM HG, HR 86 /MIN, RR 18 /MIN, TEMP 96.9 F, OXYGEN SAT % 97%, SAFE IN ENV? (Y/N) Y, NA INITIALS AW 1453, REVIEWED BY: AD. EXAMINATION GENERAL EXAMINATION: GENERALNO ACUTE DISTRESS, WELL NOURISHED AND HYDRATED. PSYCHAPPROPRIATE MOOD AND AFFECT . LUNGS:CLEAR TO AUSCULTATION BILATERALLY, NO WHEEZES, RHONCHI, RALES. HEART:NO MURMURS, REGULAR RATE AND RHYTHM. BACK:POINT TENDER LOWER LUMBAR SPINE SURROUNDING SKIN SHOWS NO ERYTHEMA, ECCHYMOSIS, INCREASED WARMTH, AND/OR SKIN ERUPTIONS NOTED. . MUSCULOSKELETAL:EQUAL STRENGTH OF LOWER EXTREMITIES BILATERALLY . ASSESSMENTS INTERVERTEBRAL DISC DISORDER WITH RADICULOPATHY OF LUMBAR REGION - M51.16 (PRIMARY) TREATMENT INTERVERTEBRAL DISC DISORDER WITH RADICULOPATHY OF LUMBAR REGION STOP IBUPROFEN TABLET, 800 MG, 1 TABLET WITH FOOD OR MILK NEEDED, ORALLY, THREE TIMES A DAY START NAPROXEN SODIUM TABLET, 550 MG, 1 TABLET WITH FOOD OR MILK NEEDED, ORALLY, EVERY 12 HRS NEEDED FOR PAIN, 30 DAYS, 60 NOTES: LESI L4-L5 L5-S1. CLINICAL NOTES: 38-YEAR-OLD FEMALE IN FOR CHRONIC PAIN FOLLOW-UP. GIVEN PRESENTING SYMPTOMS AND RESULTS OF PHYSICAL EXAMINATION RECOMMENDED LESI L4-L5 L5-S1 WITH POST PROCEDURAL FOLLOW-UP. PATIENT HAS EXPRESSED UNDERSTANDING OF AND WAS IN AGREEMENT WITH TREATMENT PLAN. GIVEN TIME TO ASK QUESTIONS AND EXPRESS CONCERNS. PREVENTIVE MEDICINE PAIN CLINIC TEACHING: PROCEDURE TEACHING LUMBAR EPIDURAL STEROID INJECTION TEACHING SHEETS PRINTED AND REVIEWED WITH PATIENT 03/24/19 1601 NLJ. MEDITATION NAPROXEN MEDICATION TEACHING SHEETS PRINTED AND REVIEWED WITH PATIENT 03/24/19 1606 NLJ. PROCEDURE CODES [id number] ESTABILISHED PATIENT [facility] F[facility] CHARGE DISPOSITION & COMMUNICATION FOLLOW UP POSTPROCEDURE (REASON: LESI L4-L5 L5-S1) ELECTRONICALLY SIGNED BY TINO BERNAL ON 03/25/2019 AT 10:15 AM EDT DISCLAIMER : THIS IS A VISIT SUMMARY EXTRACTED FROM THE [employer] CHART. IT IS NOT A COPY OF THE [employer] PROGRESS NOTE. PARKER
== END ==
LOC: M PAIN 14:30
PROVIDERS: ATTEND Family Medicine
DX: M51.16 Intervertebral disc disorders with radiculopathy, lumbar region (principal); G89.29 Other chronic pain; Z86.19 Personal history of other infectious and parasitic diseases; Z86.59 Personal history of other mental and behavioral disorders; G47.00 Insomnia, unspecified; J45.909 Unspecified asthma, uncomplicated; M79.18 Myalgia, other site; F17.210 Nicotine dependence, cigarettes, uncomplicated; Z88.8 Allergy status to other drugs, medicaments and biological substances; Z79.84 Long term (current) use of oral hypoglycemic drugs; Z79.891 Long term (current) use of opiate analgesic; Z79.899 Other long term (current) drug therapy

== ENCOUNTER → 2019-04-11 | Outpatient (REF) | LOC: M LAB 20:40 ==